=== PATIENT | male | born 1965 | race Caucasian/White ===

== ENCOUNTER 2017-04-18 21:54 | Inpatient (IN) | payer OTHER ==
[~2017-04-18] VITALS: Ht 175.3 cm; Wt 97.2 kg
[~2017-04-18 21:54] MED LIST: GEMF600T PO; LAMO25TA PO; LISI-360 PO; TRIH2 PO; ZOCO40TA PO
[2017-04-18 22:10] VITALS: BP 132/83; PULSE 115; RESP 20; TEMP 98.1; O2SAT 97
[2017-04-18] MEDS ORDERED: ZIPRASIDONE MESYLATE 20 MG VIAL IM ONE (22:15)
--- NOTE | 2017-04-18 22:25 | PD ---
HPI Chief Complaint: Psychiatric Symptoms Time Seen by Provider: 22:08 Travel History International Travel<30 days: No Contact w/Intl Traveler<30days: No Traveled to known affect area: No History of Present Illness HPI 51-year-old white male presents emergency department under [place] act by PD. Patient had gotten upset with a tenet for not paying the rent. An argument escalated. Please were involved. Patient then became acutely agitated and psychotic. He made homicidal statements towards the police officers. The patient was taken down and brought to the ER under a [place] act. Patient here is very agitated and psychotic. The patient admits to alcohol and to tobacco. He denies any other drugs. He denies any medical complaints. He states that he has a history of psychiatric problems, hypertension and wants his medications. PFSH Past Medical History Bipolar Disorder: Yes Anxiety: Yes Diabetes: No Diminished Hearing: No Hepatitis: Yes Hypertension: Yes Psychiatric: Yes Immunizations Current: Yes Tetanus Vaccination: Unknown Influenza Vaccination: No Past Surgical History Appendectomy: Yes (1992) Neurologic Surgery: Yes (LASER SURGERY BACK) Tonsillectomy: Yes (1994) Other Surgery: Yes (NOSE REPAIR) Social History Alcohol Use: Yes (occasionally) Tobacco Use: Yes (cloves pack a day) Substance Use: Yes (Marijuana, cocaine) Allergies-Medications (Allergen,Severity, Reaction): Coded Allergies: No Known Allergies (Unverified Adverse Reaction, Unknown, 04/18/17) Per pt. Reported Meds & Prescriptions Reported Meds & Active Scripts Active Active Prescriptions or Reported Medications Unobtainable Review of Systems ROS Limitations: Psychotic Physical Exam Narrative GENERAL: Well-nourished, well-developed patient. Patient is in four-point restraints. He is thrashing about. SKIN: Warm and dry. HEAD: Normocephalic and atraumatic. EYES: No scleral icterus. No injection or drainage. ENT: No nasal drainage noted. Mucous membranes pink. Airway patent. Patient has some blood on his lips and teeth but due to his combative behavior unable to assess it fully. NECK: Supple, trachea midline. Moves head freely without obvious discomfort. CARDIOVASCULAR: Regular rate and rhythm without murmurs, gallops, or rubs. RESPIRATORY: Breath sounds equal bilaterally. No accessory muscle use. GASTROINTESTINAL: Abdomen soft, non-tender, nondistended. EXTREMITIES: No cyanosis or edema. BACK: Nontender without obvious deformity. No CVA tenderness. NEURO: Patient is alert and oriented. no sensorimotor deficits. Nonfocal. Normal speech. PSYCH: Patient is acutely agitated and psychotic. Data Data Last Documented VS Vital Signs Date Time Temp Pulse Resp B/P (MAP) Pulse Ox O2 Delivery O2 Flow Rate FiO2 04/18/17 22:10 98.1 115 20 132/83 (99) 97 Orders Orders Ziprasidone Inj (Geodon Inj) (04/18/17 22:15) Complete Blood Count With Diff (04/18/17 22:16) Comprehensive Metabolic Panel (04/18/17 22:16) Thyroid Stimulating Hormone (04/18/17 22:16) Psych Screen (04/18/17 22:16) Drug Screen, Random Urine (04/18/17 22:16) Alcohol (Ethanol) (04/18/17 22:16) Restraints Violent (04/18/17 22:25) Labs Laboratory Tests Test 04/18/17 22:15 04/18/17 22:50 White Blood Count 12.6 TH/MM3 Red Blood Count 4.10 MIL/MM3 Hemoglobin 13.2 GM/DL Hematocrit 38.1 % Mean Corpuscular Volume 93.0 FL Mean Corpuscular Hemoglobin 32.3 PG Mean Corpuscular Hemoglobin Concent 34.7 % Red Cell Distribution Width 14.8 % Platelet Count 356 TH/MM3 Mean Platelet Volume 7.9 FL Neutrophils (%) (Auto) 61.3 % Lymphocytes (%) (Auto) 27.6 % Monocytes (%) (Auto) 9.4 % Eosinophils (%) (Auto) 1.4 % Basophils (%) (Auto) 0.3 % Neutrophils # (Auto) 7.7 TH/MM3 Lymphocytes # (Auto) 3.5 TH/MM3 Monocytes # (Auto) 1.2 TH/MM3 Eosinophils # (Auto) 0.2 TH/MM3 Basophils # (Auto) 0.0 TH/MM3 CBC Comment DIFF FINAL Differential Comment Blood Urea Nitrogen 12 MG/DL Creatinine 0.97 MG/DL Random Glucose 84 MG/DL Total Protein 8.8 GM/DL Albumin 4.2 GM/DL Calcium Level 9.3 MG/DL Alkaline Phosphatase 123 U/L Aspartate Amino Transf (AST/SGOT) 51 U/L Alanine Aminotransferase (ALT/SGPT) 26 U/L Total Bilirubin 0.4 MG/DL Sodium Level 140 MEQ/L Potassium Level 4.0 MEQ/L Chloride Level 105 MEQ/L Carbon Dioxide Level 20.7 MEQ/L Anion Gap 14 MEQ/L Estimat Glomerular Filtration Rate 82 ML/MIN Thyroid Stimulating Hormone 3rd Gen 0.940 uIU/ML Ethyl Alcohol Level 135 MG/DL Urine Opiates Screen NEG Urine Barbiturates Screen NEG Urine Amphetamines Screen NEG Urine Benzodiazepines Screen POS Urine Cocaine Screen NEG Urine Cannabinoids Screen POS MDM Medical Decision Making Medical Screen Exam Complete: Yes Emergency Medical Condition: Yes Medical Record Reviewed: Yes Interpretation(s) Laboratory Tests Test 04/18/17 22:15 04/18/17 22:50 White Blood Count 12.6 TH/MM3 Red Blood Count 4.10 MIL/MM3 Hemoglobin 13.2 GM/DL Hematocrit 38.1 % Mean Corpuscular Volume 93.0 FL Mean Corpuscular Hemoglobin 32.3 PG Mean Corpuscular Hemoglobin Concent 34.7 % Red Cell Distribution Width 14.8 % Platelet Count 356 TH/MM3 Mean Platelet Volume 7.9 FL Neutrophils (%) (Auto) 61.3 % Lymphocytes (%) (Auto) 27.6 % Monocytes (%) (Auto) 9.4 % Eosinophils (%) (Auto) 1.4 % Basophils (%) (Auto) 0.3 % Neutrophils # (Auto) 7.7 TH/MM3 Lymphocytes # (Auto) 3.5 TH/MM3 Monocytes # (Auto) 1.2 TH/MM3 Eosinophils # (Auto) 0.2 TH/MM3 Basophils # (Auto) 0.0 TH/MM3 CBC Comment DIFF FINAL Differential Comment Blood Urea Nitrogen 12 MG/DL Creatinine 0.97 MG/DL Random Glucose 84 MG/DL Total Protein 8.8 GM/DL Albumin 4.2 GM/DL Calcium Level 9.3 MG/DL Alkaline Phosphatase 123 U/L Aspartate Amino Transf (AST/SGOT) 51 U/L Alanine Aminotransferase (ALT/SGPT) 26 U/L Total Bilirubin 0.4 MG/DL Sodium Level 140 MEQ/L Potassium Level 4.0 MEQ/L Chloride Level 105 MEQ/L Carbon Dioxide Level 20.7 MEQ/L Anion Gap 14 MEQ/L Estimat Glomerular Filtration Rate 82 ML/MIN Thyroid Stimulating Hormone 3rd Gen 0.940 uIU/ML Ethyl Alcohol Level 135 MG/DL Urine Opiates Screen NEG Urine Barbiturates Screen NEG Urine Amphetamines Screen NEG Urine Benzodiazepines Screen POS Urine Cocaine Screen NEG Urine Cannabinoids Screen POS Differential Diagnosis MDM: High Differential diagnoses: Schizophrenia, schizoaffective disorder, bipolar, anxiety, depression, adjustment reaction, mood disorder NOS, ODD, depressive disorder NOS, dementia, dementia with agitation, psychosis NOS, substance induced mood disorder, DMDD, Asperger syndrome, infection,electrolyte abnormality, malingering. Narrative Course Mental health screening discussed with the patient. Psychiatric screen ordered. The patient is acutely agitated and combative. There is concern for safety of the medical staff. The patient was taking from handcuffs and placed in four- point restraints. He was medicated with Geodon 20 mg IM. The patient has been medically cleared. Diagnosis Primary Impression: Medical clearance for psychiatric admission Scripts Unable to Obtain Active Prescriptions or Reported Meds Condition: Sarmad Cash Apr 18, 2017 22:25
[2017-04-18 22:50] LABS: AUTOMATED NEUTROPHIL # 7.7 TH/MM3 (1.8-7.7); BASOPHIL % 0.3 % (0.0-2.0); EOSINOPHIL # 0.2 TH/MM3 (0-0.4); EOSINOPHIL % 1.4 % (0.0-4.0); HEMATOCRIT 38.1 % (39.0-51.0); HEMOGLOBIN 13.2 GM/DL (13.0-17.0); LYMPH % 27.6 % (9.0-44.0); LYMPHOCYTE # 3.5 TH/MM3 (1.0-4.8); MEAN CORPUSCULAR HEMOGLOBIN 32.3 PG (27.0-34.0); MEAN CORPUSCULAR HGB CONC 34.7 % (32.0-36.0); MEAN PLATELET VOLUME 7.9 FL (7.0-11.0); MONO % 9.4 % (0.0-8.0); MONOCYTE # 1.2 TH/MM3 (0-0.9); NEUT % 61.3 % (16.0-70.0); PLATELET COUNT 356 TH/MM3 (150-450); RED CELL DISTRIBUTION WIDTH 14.8 % (11.6-17.2); WHITE BLOOD COUNT 12.6 TH/MM3 (4.0-11.0)
[2017-04-18 23:04] LABS: ALT (GPT) 26 U/L (12-78)
[2017-04-18 23:15] LABS: ALKALINE PHOSPHATASE 123 U/L (45-117); TOTAL BILIRUBIN ADULT 0.4 MG/DL (0.2-1.0); TOTAL PROTEIN 8.8 GM/DL (6.4-8.2)
[2017-04-18 23:17] LABS: ALBUMIN 4.2 GM/DL (3.4-5.0); AST (GOT) 51 U/L (15-37); BICARBONATE 20.7 MEQ/L (21.0-32.0); BLOOD UREA NITROGEN 12 MG/DL (7-18); CALCIUM 9.3 MG/DL (8.5-10.1); CHLORIDE 105 MEQ/L (98-107); CREATININE 0.97 MG/DL (0.60-1.30); GLOMERULAR FILTRATION RATE 82 ML/MIN (>89); GLUCOSE,RANDOM 84 MG/DL (74-106); SODIUM (NA) 140 MEQ/L (136-145)
[2017-04-19] MEDS ORDERED: diphenhydrAMINE HCL 50 MG/ML VIAL IM ONE ×2 (00:45→14:00)
[2017-04-19] MEDS ORDERED: LORazepam 2 MG/ML VIAL IM ONE (00:45)
[2017-04-19 02:13] VITALS: BP 136/78; PULSE 97; RESP 20; O2SAT 97
[2017-04-19 06:32] VITALS: BP 124/77; PULSE 87; RESP 20; O2SAT 98
[2017-04-19 10:10] VITALS: BP 145/71; PULSE 89; RESP 22
[2017-04-19] MEDS ORDERED: SERO200T PO (12:41)
[2017-04-19] MEDS ORDERED: TRAZ50TA12 PO (12:42)
[2017-04-19] MEDS ORDERED: ZIPR40 PO (12:42)
[2017-04-19] MEDS ORDERED: TRIH2 PO (12:42)
[2017-04-19] MEDS ORDERED: PROP40TA3 PO (12:44)
[2017-04-19] MEDS ORDERED: ZIPRASIDONE MESYLATE 20 MG VIAL IM ONE (14:00)
[2017-04-19] MEDS ORDERED: LORazepam 2 MG TAB PO PRN (16:15)
[2017-04-19] MEDS ORDERED: LORazepam 2 MG/ML VIAL IM PRN (16:15)
[2017-04-19] MEDS ORDERED: FLUMAZENIL 0.5 MG/5 ML VIAL IV PUSH PRN (16:15)
[2017-04-19] MEDS ORDERED: MAGNESIUM HYDROXIDE SUSP 30 ML CUP PO PRN (16:15)
[2017-04-19] MEDS ORDERED: ALUMINUM/MAGNESIUM/SIMETH 30 ML CUP PO PRN (16:15)
[2017-04-19] MEDS ORDERED: LORazepam 1 MG TAB PO PRN (16:15)
[2017-04-19] MEDS ORDERED: LORazepam 0.5 MG TAB PO PRN (16:15)
[2017-04-19] MEDS ORDERED: LORazepam 2 MG/ML VIAL IV PUSH PRN ×4 (16:15)
--- NOTE | 2017-04-19 16:33 | HHI.HP ---
Provisional Diagnosis Admission Date Commerce I. Bipolar disorder, polysubstance dependance, including Cocaine, alcohol and cannabis Commerce II. deferred Commerce III. No significant medical history Certification of Person's Competence To Provide Express and Informed Consent I have personally examined Mark Massey , a person being served at [facility] on, Apr 19, 2017 16:09. Express and informed consent means consent voluntarily given in writing, by a competent person, after sufficient explanation and disclosure of the subject matter involved to enable the person to make a knowing and willful decision without any element of force, fraud, deceit, duress, or other form of constraint or coercion. This person is 18 years of age or older, is not now known to be incompetent to consent to treatment with a guardian advocate, and does not have a health care surrogate or proxy currently making medical treatment decisions. I have found this person to be one of the following: [] Competent to provide express and informed consent, as defined above, for voluntary admission to this facility and is competent to provide express and informed consent for treatment. He/she has the consistent capacity to make well reasoned, willful, and knowing decisions concerning his or her medical or mental health treatment. The person fully and consistently understands the purpose of the admission for examination/placement and is fully capable of personally exercising all rights assured [place] Incompetent to provide express and informed consent to voluntary admission, and this is incompetent to provide express and informed consent to treatment. The person must be transferred to involuntary status and a petition for a guardian advocate filed with the Circuit Court. [x] Refusing to provide express and informed consent to voluntary admission but is competent to provide express and informed consent for treatment. The person must be discharged or transferred to involuntary status. Form shall be completed within 24 hours of a person's arrival at the receiving facility and filed in the clinical record of each person: 1. Admitted on a voluntary basis 2. Permitted to provide express and informed consent to his/her own treatment 3. Allowed to transfer from involuntary to voluntary status 4. Prior to permitting a person to consent to his or her own treatment after having been previously found incompetent to consent to treatment. History of Present Illness Capacity: Has Capacity HPI The patient is a 51-year-old man, domiciled wit his mother, unemployed, single, [facility] of bipolar disorder, alcohol,. cannabis and cocaine use disorder, mult hospitalizations, no SAs, last hospitalization was here in [place] in 2016, outpatient care in [facility], he is on Geodon 80 bid, Seroquel 150 mg HS, propranolol 10 tid for akathisia, trazodone 150 hs, no significant medical history, who presents emergency department under [place] act by PD. Patient had gotten upset with a tenent for not paying the rent. An argument escalated. Please were involved. Patient then became acutely agitated and psychotic. He made homicidal statements towards the police officers. The patient was taken down and brought to the ER under a [place] act. Patient here is very agitated and psychotic. The patient admits to alcohol and to tobacco. He denies any other drugs. He denies any medical complaints. He states that he has a history of psychiatric problems, hypertension and wants his medications. On arrival to ER patient is so hostile and agitated that had to be medicated with Geodon 10 mg im and Benadryl 50 im in order to calm him down. When I see him is very sedated and just partially cooperative. he says he is here "because my IQ is too high and those mother f.....s wanted to kill me". This morning he allegedly destroyed his mother doctor office, when I confronted him about this issue he says "I wanted my medical records and my mothers medical records and they did not wanted to give it to me". His toxicology is positive for cocaine and cannabis and his BAL is 135. I tried to get collateral information form his mother [phone], but she did not oyster picker the phone. Review of Systems Constitutional: DENIES: Diaphoretic episodes, Fatigue, Fever, Weight gain, Weight loss, Chills, Dizziness, Change in appetite, Night Sweats Endocrine: DENIES: Heat/cold intolerance, Polydipsia, Polyuria, Polyphagia Eyes: DENIES: Blurred vision, Diplopia, Eye inflammation, Eye pain, Vision loss , Photosensitivity, Double Vision Ears, nose, mouth, throat: DENIES: Tinnitus, Hearing loss, Vertigo, Nasal discharge, Oral lesions, Throat pain, Hoarseness, Ear Pain, Running Nose, Epistaxis, Sinus Pain, Toothache, Odynophagia Respiratory: DENIES: Apneas, Cough, Snoring, Wheezing, Hemoptysis, Sputum production, Shortness of breath Cardiovascular: DENIES: Chest pain, Palpitations, Syncope, Dyspnea on Exertion , PND, Lower Extremity Edema, Orthopnea, Claudication Gastrointestinal: DENIES: Abdominal pain, Black stools, Bloody stools, Constipation, Diarrhea, Nausea, Vomiting, Difficulty Swallowing, Anorexia Genitourinary: DENIES: Sexual dysfunction, Urinary frequency, Urinary incontinence, Urgency, Hematuria, Dysuria, Nocturia, Penile Discharge, Testicular Pain, Testicular Swelling Musculoskeletal: DENIES: Joint pain, Muscle aches, Stiffness, Joint Swelling, Back pain, Neck pain Integumentary: DENIES: Abnormal pigmentation, Nail changes, Pruritus, Rash Hematologic/lymphatic: DENIES: Bruising, Lymphadenopathy Immunologic/allergic: DENIES: Eczema, Urticaria Neurologic: DENIES: Abnormal gait, Headache, Localized weakness, Paresthesias, Seizures, Speech Problems, Tremor, Poor Balance Psychiatric: COMPLAINS OF: Anxiety, Mood changes, Delusions, DENIES: Confusion , Depression, Hallucinations, Agitation, Suicidal Ideation, Homicidal Ideation Past Psych History Violence risk - others (6 mos) increased Violence risk - self (6 mos) increased Substance Abuse History Drugs/Alcohol past 12 months cocaine, cannabis and alcohol Past Family Social History Coded Allergies: No Known Allergies (Unverified Adverse Reaction, Unknown, 04/19/17) Per pt. Reported Medications Propranolol (Propranolol) 40 Mg Tab, 40 MG PO Q12HR, #60 TAB 0 Refills 18 Ziprasidone (Geodon) 40 Mg Cap, 40 MG PO BID, #60 CAP 0 Refills 18 Trihexyphenidyl (Trihexyphenidyl) 2 Mg Tab, 2 MG PO BID for Parkinson Disease Mgmt, #60 TAB 0 Refills 18 Trazodone (Trazodone) 50 Mg Tab, 50 MG PO HS for Control Depression, #30 TAB 0 Refills 18 Quetiapine (Seroquel) 200 Mg Tab, 200 MG PO HS, #30 TAB 0 Refills 18 Family Psych History Mother is bipolar Social History he was born in [place], he lives with his mother in [place], unemployed, on SSI, single, Collage education Patient's Strengths (min. 2) outpatient care in [facility] Physical Exam agitated Vital Signs Vital Signs Date Time Temp Pulse Resp B/P (MAP) Pulse Ox O2 Delivery O2 Flow Rate FiO2 04/19/17 10:10 89 22 145/71 (95) Room Air 04/19/17 06:32 98 04/18/17 22:10 98.1 Lab Results Test 04/18/17 22:15 04/18/17 22:50 White Blood Count 12.6 TH/MM3 Red Blood Count 4.10 MIL/MM3 Hemoglobin 13.2 GM/DL Hematocrit 38.1 % Mean Corpuscular Volume 93.0 FL Mean Corpuscular Hemoglobin 32.3 PG Mean Corpuscular Hemoglobin Concent 34.7 % Red Cell Distribution Width 14.8 % Platelet Count 356 TH/MM3 Mean Platelet Volume 7.9 FL Neutrophils (%) (Auto) 61.3 % Lymphocytes (%) (Auto) 27.6 % Monocytes (%) (Auto) 9.4 % Eosinophils (%) (Auto) 1.4 % Basophils (%) (Auto) 0.3 % Neutrophils # (Auto) 7.7 TH/MM3 Lymphocytes # (Auto) 3.5 TH/MM3 Monocytes # (Auto) 1.2 TH/MM3 Eosinophils # (Auto) 0.2 TH/MM3 Basophils # (Auto) 0.0 TH/MM3 CBC Comment DIFF FINAL Differential Comment Blood Urea Nitrogen 12 MG/DL Creatinine 0.97 MG/DL Random Glucose 84 MG/DL Total Protein 8.8 GM/DL Albumin 4.2 GM/DL Calcium Level 9.3 MG/DL Alkaline Phosphatase 123 U/L Aspartate Amino Transf (AST/SGOT) 51 U/L Alanine Aminotransferase (ALT/SGPT) 26 U/L Total Bilirubin 0.4 MG/DL Sodium Level 140 MEQ/L Potassium Level 4.0 MEQ/L Chloride Level 105 MEQ/L Carbon Dioxide Level 20.7 MEQ/L Anion Gap 14 MEQ/L Estimat Glomerular Filtration Rate 82 ML/MIN Thyroid Stimulating Hormone 3rd Gen 0.940 uIU/ML Ethyl Alcohol Level 135 MG/DL Urine Opiates Screen NEG Urine Barbiturates Screen NEG Urine Amphetamines Screen NEG Urine Benzodiazepines Screen POS Urine Cocaine Screen NEG Urine Cannabinoids Screen POS Mental Status Examination Appearance: Appropriate Consciousness: Alert Orientation: x4 Motor Activity: Normal gait Speech: Rapid Language: Adequate Fund of Knowledge: Adequate Attention and Concentration: Adequate Memory: Unremarkable Mood: Appropriate Affect: Appropriate Thought Process & Associations: Goal directed, Tangential Thought Content: Bizarre thinking, Racing thoughts, Delusional Hallucination Type: None Delusion Type: Paranoid Suicidal Ideation: No Suicidal Plan: No Suicidal Intention: No Homicidal Ideation: No Homicidal Plan: No Homicidal Intention: No Insight: Poor Judgment: Poor Assessment & Plan Problem List: (1) Schizoaffective disorder ICD Codes: F25.9 - Schizoaffective disorder, unspecified Status: Acute Assessment & Plan: Patient is acutely manic and needs psychiatric admission for stabilization. He also complains of restlessness and anxiety that could me related to akathisia Will decreased Geodon to 20 mg bid with intentions to DC Increased Seroquel to 100 mg bid and will restart trazodone 100mg Also start CIWA protocol Consult for psychiatric second opinion placed intervention for psychosocial assessment and collateral Transfer to 2700 (2) Akathisia ICD Codes: G25.71 - Drug induced akathisia Assessment & Plan: Patient has history of akathisia, I will decrease Geodon to 20 bid with the intention to DC and will raised Seroquel to leave him with just one antipsychotics and avoid EPS. Will continue Propranolol 10 bid . Assessment & Plan Estimated LOS: Devon Bolanos MD Apr 19, 2017 16:33
[2017-04-19] MEDS: NICOTINE 21 MG/24 HR PATCH T-DERMAL SCH (17:00)
[2017-04-19 18:18] VITALS: BP 135/83; PULSE 94; RESP 17; TEMP 98.1; O2SAT 97
[2017-04-19] MEDS: TRIHEXYPHENIDYL HCL 2 MG TAB PO SCH (20:33)
[2017-04-19] MEDS: QUEtiapine FUMARATE 200 MG TAB PO SCH (20:33)
[2017-04-19] MEDS: traZODone HCL 50 MG TAB PO SCH (20:33)
[2017-04-19] MEDS: PROPRANOLOL HCL 40 MG TAB PO SCH (20:33)
[2017-04-19] MEDS: ZIPRASIDONE HCL 20 MG CAP PO SCH (20:33)
[2017-04-19] MEDS: ACETAMINOPHEN 325 MG TAB PO PRN (20:34)
[2017-04-19] MEDS ORDERED: ZIPRASIDONE HCL 40 MG CAP PO SCH (21:00)
[2017-04-20 05:53] VITALS: BP 130/76; PULSE 71; RESP 16; TEMP 96.7; O2SAT 96
[2017-04-20] MEDS: NICOTINE 21 MG/24 HR PATCH T-DERMAL SCH (09:00)
[2017-04-20] MEDS: ACETAMINOPHEN 325 MG TAB PO PRN ×2 (09:30→13:30)
[2017-04-20 09:56] LABS: BICARBONATE 27.1 MEQ/L (21.0-32.0); BLOOD UREA NITROGEN 13 MG/DL (7-18); CALCIUM 9.6 MG/DL (8.5-10.1); CHLORIDE 106 MEQ/L (98-107); CHOLESTEROL 104 MG/DL (120-200); CREATININE 0.83 MG/DL (0.60-1.30); GLOMERULAR FILTRATION RATE 98 ML/MIN (>89); GLUCOSE,RANDOM 75 MG/DL (74-106); SODIUM (NA) 141 MEQ/L (136-145); TRIGLYCERIDES 100 MG/DL (42-150)
[2017-04-20 09:59] LABS: CHOLESTEROL/ HDL RATIO 2.12 RATIO; LDL CHOLESTEROL 35 MG/DL (0-99)
[2017-04-20] MEDS ORDERED: INFLUENZA VIRUS VACCINE (QUADRIVALENT) 0.5 ML SYR IM ONE (10:00)
[2017-04-20] MEDS ORDERED: PNEUMOCOCCAL POLYVALENT INJ 25 MCG/0.5 ML SYR IM ONE (10:00)
[2017-04-20] MEDS: PROPRANOLOL HCL 40 MG TAB PO SCH ×2 (11:32→20:39)
[2017-04-20] MEDS: ZIPRASIDONE HCL 20 MG CAP PO SCH ×2 (11:32→20:38)
[2017-04-20] MEDS: TRIHEXYPHENIDYL HCL 2 MG TAB PO SCH ×2 (11:32→20:39)
[2017-04-20 11:53] LABS: HEMOGLOBIN A1C 5.6 % (4.3-6.0)
[2017-04-20] MEDS ORDERED: LORazepam 2 MG/ML VIAL IV PUSH STA (12:37)
[2017-04-20] MEDS ORDERED: HALOPERIDOL LACTATE 5 MG/ML AMP IM ONE (12:45)
--- NOTE | 2017-04-20 15:11 | HHI.PYPN ---
Subjective Remarks This is a request for second opinion. Admission note was reviewed and I agree with the content. Today patient is oppositional and rude using curse words towards various staff members. He is giving bizarre threats and says that he will urinate on me. "oscar showers motherfucker." He received an ETO earlier today. Thought process loose Mental Status Examination Appearance: Appropriate Consciousness: Vigilant Orientation: x4 Motor Activity: Normal gait Speech: Unremarkable Language: Adequate Fund of Knowledge: Adequate Attention and Concentration: Adequate Memory: Unremarkable Mood: Angry Affect: Irritable, Labile Thought Process & Associations: Loose associations Thought Content: Bizarre thinking, Delusional Hallucination Type: None Delusion Type: Paranoid Suicidal Ideation: No Suicidal Plan: No Suicidal Intention: No Homicidal Ideation: No Homicidal Plan: No Homicidal Intention: No Insight: Poor Judgment: Poor Results Labs Test 04/20/17 09:00 Blood Urea Nitrogen 13 MG/DL Creatinine 0.83 MG/DL Random Glucose 75 MG/DL Calcium Level 9.6 MG/DL Sodium Level 141 MEQ/L Potassium Level 3.9 MEQ/L Chloride Level 106 MEQ/L Carbon Dioxide Level 27.1 MEQ/L Anion Gap 8 MEQ/L Estimat Glomerular Filtration Rate 98 ML/MIN Hemoglobin A1c 5.6 % Triglycerides Level 100 MG/DL Cholesterol Level 104 MG/DL LDL Cholesterol 35 MG/DL HDL Cholesterol 49.0 MG/DL Cholesterol/HDL Ratio 2.12 RATIO Vitals/IOs Vital Signs Date Time Temp Pulse Resp B/P (MAP) Pulse Ox O2 Delivery O2 Flow Rate FiO2 04/20/17 05:53 96.7 71 16 130/76 (94) 96 04/19/17 10:10 Room Air Assessment & Plan Problem List: (1) Schizoaffective disorder ICD Codes: F25.9 - Schizoaffective disorder, unspecified Status: Acute (2) Akathisia ICD Codes: G25.71 - Drug induced akathisia Assessment & Plan I agree with first opinion to continue petition, criteria include acute psychosis Justification for Cont. Inpt. Patient will decompensate in a less restrictive setting Junior Hare DO Apr 20, 2017 15:11
[2017-04-20 18:17] VITALS: BP 139/83; PULSE 70; RESP 17; TEMP 96.8; O2SAT 97
[2017-04-20] MEDS: traZODone HCL 50 MG TAB PO SCH (20:39)
[2017-04-20] MEDS: QUEtiapine FUMARATE 200 MG TAB PO SCH (20:39)
[2017-04-20] MEDS: REMOVE OLD NICODERM (NICOTINE) PATCH T-DERMAL SCH (20:39)
[2017-04-20] MEDS: LORazepam 1 MG TAB PO PRN (20:44)
[2017-04-21 06:13] VITALS: BP 126/77; PULSE 77; RESP 16; TEMP 97.8; O2SAT 98
[2017-04-21] MEDS: NICOTINE 21 MG/24 HR PATCH T-DERMAL SCH (09:00)
[2017-04-21] MEDS: PROPRANOLOL HCL 40 MG TAB PO SCH ×2 (09:30→20:33)
[2017-04-21] MEDS: ZIPRASIDONE HCL 20 MG CAP PO SCH ×2 (09:30→20:32)
[2017-04-21] MEDS: TRIHEXYPHENIDYL HCL 2 MG TAB PO SCH ×2 (09:30→20:32)
[2017-04-21] MEDS: ACETAMINOPHEN 325 MG TAB PO PRN ×2 (09:31→13:30)
--- NOTE | 2017-04-21 12:39 | HHI.PYPN ---
Subjective Remarks Patient continues to be irritable, rude well cursing throughout the interview. He is fixated on Dr. Dominique for allegedly lying to him about length of stay. Patient has sneaked in a cigarette and was seen smoking in his room. Apparently he was also given trazodone by his visitor which she was distributing among some of the patient's. Patient sees nothing wrong with his unexcused behavior. Mental Status Examination Appearance: Appropriate Consciousness: Vigilant Orientation: x4 Motor Activity: Normal gait Speech: Unremarkable Language: Adequate Fund of Knowledge: Adequate Attention and Concentration: Adequate Memory: Unremarkable Mood: Angry Affect: Irritable, Labile Thought Process & Associations: Loose associations Thought Content: Bizarre thinking, Delusional Hallucination Type: None Delusion Type: Paranoid Suicidal Ideation: No Suicidal Plan: No Suicidal Intention: No Homicidal Ideation: No Homicidal Plan: No Homicidal Intention: No Insight: Poor Judgment: Poor Results Vitals/IOs Vital Signs Date Time Temp Pulse Resp B/P (MAP) Pulse Ox O2 Delivery O2 Flow Rate FiO2 04/21/17 06:13 97.8 77 16 126/77 (93) 98 04/19/17 10:10 Room Air Assessment & Plan Problem List: (1) Schizoaffective disorder ICD Codes: F25.9 - Schizoaffective disorder, unspecified Status: Acute (2) Akathisia ICD Codes: G25.71 - Drug induced akathisia Assessment & Plan Continue current treatment plan, no visitors Justification for Cont. Inpt. Patient would decompensate in a less restrictive setting Junior Hare DO Apr 21, 2017 12:39
[2017-04-21 18:06] VITALS: BP 151/89; PULSE 81; RESP 16; TEMP 97.3; O2SAT 96
[2017-04-21] MEDS: REMOVE OLD NICODERM (NICOTINE) PATCH T-DERMAL SCH (20:31)
[2017-04-21] MEDS: QUEtiapine FUMARATE 200 MG TAB PO SCH (20:32)
[2017-04-21] MEDS: traZODone HCL 50 MG TAB PO SCH (20:32)
[2017-04-22] MEDS: LORazepam 2 MG/ML VIAL IM PRN (01:02)
[2017-04-22 06:23] VITALS: BP 132/80; PULSE 75; RESP 18; TEMP 97.5; O2SAT 95
[2017-04-22] MEDS: ACETAMINOPHEN 325 MG TAB PO PRN (08:04)
[2017-04-22] MEDS: PROPRANOLOL HCL 40 MG TAB PO SCH ×2 (08:57→20:04)
[2017-04-22] MEDS: NICOTINE 21 MG/24 HR PATCH T-DERMAL SCH (08:58)
[2017-04-22] MEDS: TRIHEXYPHENIDYL HCL 2 MG TAB PO SCH ×2 (09:00→20:04)
[2017-04-22] MEDS: ZIPRASIDONE HCL 20 MG CAP PO SCH ×2 (09:00→20:04)
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
[2017-04-22 16:31] VITALS: BP 161/94; PULSE 86; RESP 18; TEMP 97.5; O2SAT 100
[2017-04-22] MEDS: traZODone HCL 50 MG TAB PO SCH (20:04)
[2017-04-22] MEDS: QUEtiapine FUMARATE 200 MG TAB PO SCH (20:04)
[2017-04-22] MEDS: REMOVE OLD NICODERM (NICOTINE) PATCH T-DERMAL SCH (20:05)
[2017-04-23] MEDS: LORazepam 2 MG/ML VIAL IM PRN ×2 (01:14→23:06)
[2017-04-23 05:47] VITALS: BP 132/88; PULSE 79; RESP 18; TEMP 97; O2SAT 98
[2017-04-23 08:54] LABS: AUTOMATED NEUTROPHIL # 5.7 TH/MM3 (1.8-7.7); BASOPHIL % 0.4 % (0.0-2.0); EOSINOPHIL # 0.2 TH/MM3 (0-0.4); EOSINOPHIL % 2.3 % (0.0-4.0); HEMATOCRIT 39.8 % (39.0-51.0); HEMOGLOBIN 13.5 GM/DL (13.0-17.0); LYMPH % 19.4 % (9.0-44.0); LYMPHOCYTE # 1.5 TH/MM3 (1.0-4.8); MEAN CELL VOLUME 94.1 FL (80.0-100.0); MEAN PLATELET VOLUME 7.9 FL (7.0-11.0); MONO % 6.1 % (0.0-8.0); MONOCYTE # 0.5 TH/MM3 (0-0.9); NEUT % 71.8 % (16.0-70.0); PLATELET COUNT 303 TH/MM3 (150-450); RED BLOOD COUNT 4.22 MIL/MM3 (4.50-5.90); RED CELL DISTRIBUTION WIDTH 14.6 % (11.6-17.2)
[2017-04-23] MEDS: ZIPRASIDONE HCL 20 MG CAP PO SCH (09:00)
[2017-04-23] MEDS: TRIHEXYPHENIDYL HCL 2 MG TAB PO SCH ×2 (09:00→20:23)
[2017-04-23] MEDS: NICOTINE 21 MG/24 HR PATCH T-DERMAL SCH (09:00)
[2017-04-23] MEDS: PROPRANOLOL HCL 40 MG TAB PO SCH (09:00)
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
[2017-04-23] MEDS ORDERED: fluPHENAZine HCL 25 MG/10 ML VIAL IM PRN (11:15)
[2017-04-23] MEDS: DIVALPROEX SODIUM E.R. 500 MG TAB PO SCH (11:15)
[2017-04-23] MEDS ORDERED: diphenhydrAMINE HCL 50 MG/ML VIAL IM PRN (11:15)
[2017-04-23] MEDS: ATORVASTATIN 20 MG TAB PO SCH (12:15)
[2017-04-23] MEDS: LISINOPRIL 20 MG TAB PO SCH (12:15)
[2017-04-23 12:48] LABS: ALBUMIN 3.7 GM/DL (3.4-5.0); DIRECT BILIRUBIN ADULT 0.1 MG/DL (0.0-0.2)
[2017-04-23 12:50] LABS: INDIRECT BILIRUBIN 0.2 MG/DL (0.0-0.8); TOTAL BILIRUBIN ADULT 0.3 MG/DL (0.2-1.0); TOTAL PROTEIN 7.7 GM/DL (6.4-8.2)
[2017-04-23 18:16] VITALS: BP 140/86; PULSE 84; RESP 18; TEMP 97.9; O2SAT 98
[2017-04-24 05:43] VITALS: BP 151/95; PULSE 83; RESP 18; TEMP 96.7; O2SAT 98
--- NOTE | 2017-04-24 06:55 | EKG ---
Date Performed: 04/22/2017 Time Performed: 15:21:48 PTAGE: 51 years EKG: Sinus rhythm CANNOT RULE OUT ATRIAL PACING, OTHERWISE NO CHANGE FROM THE PRIOR TRACING. NORMAL ECG PREVIOUS TRACING : 04/25/2015 15.13 DOCTOR: Ricky Velazquez Interpretating Date/Time 04/24/2017 06:53:59
[2017-04-24] MEDS: TRIHEXYPHENIDYL HCL 2 MG TAB PO SCH ×2 (08:19→21:06)
[2017-04-24] MEDS: PROPRANOLOL HCL 40 MG TAB PO SCH (08:19)
[2017-04-24] MEDS: DIVALPROEX SODIUM E.R. 500 MG TAB PO SCH (08:20)
[2017-04-24] MEDS: ACETAMINOPHEN 325 MG TAB PO PRN ×2 (08:32→15:11)
[2017-04-24] MEDS: LISINOPRIL 20 MG TAB PO SCH (09:00)
[2017-04-24] MEDS: ATORVASTATIN 20 MG TAB PO SCH (09:00)
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
[2017-04-24] MEDS: LORazepam 1 MG TAB PO PRN ×2 (11:04→21:06)
[2017-04-24] MEDS ORDERED: fluPHENAZine HCL 25 MG/10 ML VIAL IM PRN ×3 (12:00→15:00)
[2017-04-24 17:11] VITALS: BP 134/90; PULSE 91; RESP 18; TEMP 98.6; O2SAT 98
[2017-04-24] MEDS ORDERED: REMOVE OLD NICODERM (NICOTINE) PATCH T-DERMAL PRN (21:00)
[2017-04-25] MEDS: ACETAMINOPHEN 325 MG TAB PO PRN ×3 (05:11→21:44)
[2017-04-25 06:10] VITALS: BP 125/83; PULSE 83; RESP 16; TEMP 97.6; O2SAT 98
[2017-04-25] MEDS: PROPRANOLOL HCL 40 MG TAB PO SCH (09:38)
[2017-04-25] MEDS: LISINOPRIL 20 MG TAB PO SCH (09:38)
[2017-04-25] MEDS: ATORVASTATIN 20 MG TAB PO SCH (09:38)
[2017-04-25] MEDS: TRIHEXYPHENIDYL HCL 2 MG TAB PO SCH ×2 (09:39→21:13)
[2017-04-25] MEDS: DIVALPROEX SODIUM E.R. 500 MG TAB PO SCH (09:39)
[2017-04-25] MEDS: NICOTINE 21 MG/24 HR PATCH T-DERMAL PRN (10:38)
--- NOTE | 2017-04-25 11:32 | HHI.PYPN ---
Subjective Remarks Patient seen and case discussed with nursing staff. Chart reviewed. Per nursing staff, patient remains fairly labile. Case discussed with counselor. For me today, patient remains fairly intrusive, loud, irritable. His speech is a little less pressured. He is less overtly hostile and threatening, e.g. of lawsuits, and is more passive aggressive. No evident side effects from medications. No physical complaints. I did endeavor repeatedly to reach patient's mother, Ms. Martinez, to discuss patient's progress, but this number keeps ringing busy. Review of Systems ROS Limitations: Psychotic, Poor Historian Except as stated in HPI: all other systems reviewed are Neg Mental Status Examination Appearance: Appropriate Consciousness: Alert Orientation: Person, Place Motor Activity: Normal gait, Other (no motoric abnormalities noted) Speech: Other Language: Adequate Fund of Knowledge: Adequate Attention and Concentration: Easily Distracted Memory: Unremarkable Mood: Oppositional, Irritable Affect: Irritable, Labile Thought Process & Associations: Loose associations (perhaps a little more focused today) Thought Content: Bizarre thinking, Delusional Hallucination Type: None Delusion Type: Paranoid, Other (delusional thinking perhaps decreasing somewhat today) Suicidal Ideation: No Suicidal Plan: No Suicidal Intention: No Homicidal Ideation: No Homicidal Plan: No Homicidal Intention: No Insight: Poor Judgment: Poor Results Labs Labs reviewed. No new labs. Vitals/IOs Vital Signs Date Time Temp Pulse Resp B/P (MAP) Pulse Ox O2 Delivery O2 Flow Rate FiO2 04/25/17 06:10 97.6 83 16 125/83 (97) 98 Assessment & Plan Problem List: (1) Schizoaffective disorder ICD Codes: F25.9 - Schizoaffective disorder, unspecified Status: Acute (2) Polysubstance abuse ICD Codes: F19.10 - Other psychoactive substance abuse, uncomplicated (3) Antisocial personality traits Assessment & Plan Some modest improvement with current psychotropic regimen. Titrate Prolixin to 5mg four times daily to target psychosis. Continue Depakote as ordered and plan to obtain a Depakote and ammonia level in the morning. Plan to adjust the dose based on the level. Continue to monitor on the high acuity unit. Continue other medications and care as ordered. Patient's case was presented to the [place], and the patient was retained on the unit by the wire mesh filter fabricator with his mother and ZANA appointed as GAs. Content Development Manager also included a proviso to have law enforcement secure any weapons that the patient may own. Justification for Cont. Inpt. Medication changes. Impairment in reality construction. High risk for decompensation in less restrictive environment. Discharge Planning Pending psychiatric stabilization Request HC Surrog/Guard Advoc?: Yes Problem Qualifiers (1) Schizoaffective disorder: Qualified Codes: F25.0 - Schizoaffective disorder, bipolar type Max Gonzalez MD Apr 25, 2017 11:32
[2017-04-25] MEDS ORDERED: fluPHENAZine HCL 25 MG/10 ML VIAL IM PRN (13:30)
[2017-04-25 18:15] VITALS: BP 132/72; PULSE 85; RESP 18; TEMP 99.3; O2SAT 98
[2017-04-25] MEDS: LORazepam 1 MG TAB PO PRN (21:12)
[2017-04-26] MEDS: ACETAMINOPHEN 325 MG TAB PO PRN ×2 (05:31→17:12)
[2017-04-26 06:06] VITALS: BP 122/77; PULSE 91; RESP 18; TEMP 96.7; O2SAT 100
[2017-04-26] MEDS: DIVALPROEX SODIUM E.R. 500 MG TAB PO SCH (09:15)
[2017-04-26] MEDS: PROPRANOLOL HCL 40 MG TAB PO SCH (09:15)
[2017-04-26] MEDS: LISINOPRIL 20 MG TAB PO SCH (09:16)
[2017-04-26] MEDS: ATORVASTATIN 20 MG TAB PO SCH (09:16)
[2017-04-26] MEDS: TRIHEXYPHENIDYL HCL 2 MG TAB PO SCH ×2 (09:16→21:22)
[2017-04-26] MEDS: NICOTINE 21 MG/24 HR PATCH T-DERMAL PRN (09:22)
[2017-04-26 10:22] LABS: ALBUMIN 3.8 GM/DL (3.4-5.0)
[2017-04-26 10:25] LABS: DIRECT BILIRUBIN ADULT 0.1 MG/DL (0.0-0.2); INDIRECT BILIRUBIN 0.2 MG/DL (0.0-0.8); TOTAL BILIRUBIN ADULT 0.3 MG/DL (0.2-1.0); TOTAL PROTEIN 8.5 GM/DL (6.4-8.2)
[2017-04-26] MEDS: NEOMYCIN/POLYMYXIN/BACITRACIN OINT 15 GM TUBE TOPICAL SCH (11:30)
[2017-04-26] MEDS: IBUPROFEN 400 MG TAB PO SCH ×3 (13:03→23:58)
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
[2017-04-26 18:07] VITALS: BP 134/81; PULSE 94; RESP 18; TEMP 98; O2SAT 97
[2017-04-26] MEDS: LORazepam 1 MG TAB PO PRN (21:22)
[2017-04-27] MEDS: IBUPROFEN 400 MG TAB PO SCH ×4 (05:46→23:03)
[2017-04-27 06:25] VITALS: BP 131/84; PULSE 104; RESP 19; TEMP 97.1; O2SAT 95
[2017-04-27] MEDS: DIVALPROEX SODIUM E.R. 500 MG TAB PO SCH (08:44)
[2017-04-27] MEDS: PROPRANOLOL HCL 40 MG TAB PO SCH (08:44)
[2017-04-27] MEDS: TRIHEXYPHENIDYL HCL 2 MG TAB PO SCH ×2 (08:44→20:16)
[2017-04-27] MEDS: ATORVASTATIN 20 MG TAB PO SCH (08:45)
[2017-04-27] MEDS: LISINOPRIL 20 MG TAB PO SCH (08:45)
[2017-04-27] MEDS: NICOTINE 21 MG/24 HR PATCH T-DERMAL PRN (10:42)
--- NOTE | 2017-04-27 12:46 | HHI.PYPN ---
Subjective Remarks Pt seen and discussed with staff. Pt has been more cooperative, but remains very intrusive and inappropriately animated. Mood is labile. He expresses paranoid ideations. He is compliant with medications and denies side effects. No SI/HI Mental Status Examination Appearance: Appropriate Consciousness: Alert Orientation: Person, Place Motor Activity: Normal gait, Other (no motoric abnormalities noted) Speech: Other Language: Adequate Fund of Knowledge: Adequate Attention and Concentration: Easily Distracted Memory: Unremarkable Mood: Oppositional, Irritable Affect: Irritable, Labile Thought Process & Associations: Loose associations (perhaps a little more focused today) Thought Content: Bizarre thinking, Delusional Hallucination Type: None Delusion Type: Paranoid, Other (delusional thinking perhaps decreasing somewhat today) Suicidal Ideation: No Suicidal Plan: No Suicidal Intention: No Homicidal Ideation: No Homicidal Plan: No Homicidal Intention: No Insight: Poor Judgment: Poor Results Vitals/IOs Vital Signs Date Time Temp Pulse Resp B/P (MAP) Pulse Ox O2 Delivery O2 Flow Rate FiO2 04/27/17 06:25 97.1 104 19 131/84 (100) 95 Assessment & Plan Problem List: (1) Schizoaffective disorder ICD Codes: F25.9 - Schizoaffective disorder, unspecified Status: Acute (2) Polysubstance abuse ICD Codes: F19.10 - Other psychoactive substance abuse, uncomplicated (3) Antisocial personality traits Assessment & Plan Continue current tx plan. Estimated LOS: days Justification for Cont. Inpt. impairments in social functioning and reality testing Request HC Surrog/Guard Advoc?: Yes Problem Qualifiers (1) Schizoaffective disorder: Qualified Codes: F25.0 - Schizoaffective disorder, bipolar type Magi Judge MD Apr 27, 2017 12:45
[2017-04-27] MEDS: NEOMYCIN/POLYMYXIN/BACITRACIN OINT 15 GM TUBE TOPICAL SCH (15:31)
[2017-04-27 17:39] VITALS: BP 132/76; PULSE 86; RESP 19; TEMP 99; O2SAT 96
[2017-04-27] MEDS: LORazepam 1 MG TAB PO PRN (20:16)
[2017-04-27] MEDS: diphenhydrAMINE HCL 50 MG CAP PO PRN (20:16)
[2017-04-28] MEDS: IBUPROFEN 400 MG TAB PO SCH ×4 (05:50→23:50)
[2017-04-28 06:16] VITALS: BP 110/67; PULSE 75; RESP 17; TEMP 97.7; O2SAT 99
--- NOTE | 2017-04-28 08:17 | PD.TTN ---
Patient Problems 1. Discharge planning 2. Medication compliance 3. Knowledge deficit 4. Lack of coping skills Progress Toward Goals Provider Present: Dr. Massimo Gonzalez Provider Input: 04/26/17 somewhat remains threatening/inappropriate commenting, is being medicated and appears slowly responding to the medication treatment Psychiatric Counselors Present: Marce Bettencourt [facility] Psych Therapist Input: 04/26/17 patient remains inappropriate and intrusive, but no suicidal or homicidal thoughts, attempted to get with family for collateral Group Spec/RT/OT/MAC Present: SUSAN Fernando Group Spec/RT/OT/MAC Input: 04/26/17 patient attended select groups and needs constant redirections Olena Bailon LCSW Apr 28, 2017 08:17
[2017-04-28] MEDS: ATORVASTATIN 20 MG TAB PO SCH (08:22)
[2017-04-28] MEDS: TRIHEXYPHENIDYL HCL 2 MG TAB PO SCH ×2 (08:23→20:14)
[2017-04-28] MEDS: NEOMYCIN/POLYMYXIN/BACITRACIN OINT 15 GM TUBE TOPICAL SCH (08:23)
[2017-04-28] MEDS: DIVALPROEX SODIUM E.R. 500 MG TAB PO SCH (08:23)
[2017-04-28] MEDS: LISINOPRIL 20 MG TAB PO SCH (08:23)
[2017-04-28] MEDS: PROPRANOLOL HCL 40 MG TAB PO SCH (08:23)
[2017-04-28] MEDS: NICOTINE 21 MG/24 HR PATCH T-DERMAL PRN (08:24)
--- NOTE | 2017-04-28 13:18 | HHI.PYPN ---
Subjective Remarks Pt seen and discussed with staff. He has been more engaged in milieu activities today. He is compliant with medications. No SI/HI Mental Status Examination Appearance: Appropriate Consciousness: Alert Orientation: Person, Place Motor Activity: Normal gait, Other (no motoric abnormalities noted) Speech: Other Language: Adequate Fund of Knowledge: Adequate Attention and Concentration: Easily Distracted Memory: Unremarkable Mood: Oppositional, Irritable Affect: Irritable, Labile Thought Process & Associations: Tangential Thought Content: Bizarre thinking, Delusional Hallucination Type: None Delusion Type: Paranoid, Other (delusional thinking perhaps decreasing somewhat today) Suicidal Ideation: No Suicidal Plan: No Suicidal Intention: No Homicidal Ideation: No Homicidal Plan: No Homicidal Intention: No Insight: Poor Judgment: Poor Results Vitals/IOs Vital Signs Date Time Temp Pulse Resp B/P (MAP) Pulse Ox O2 Delivery O2 Flow Rate FiO2 04/28/17 06:16 97.7 75 17 110/67 (81) 99 Assessment & Plan Problem List: (1) Schizoaffective disorder ICD Codes: F25.9 - Schizoaffective disorder, unspecified Status: Acute (2) Polysubstance abuse ICD Codes: F19.10 - Other psychoactive substance abuse, uncomplicated (3) Antisocial personality traits Assessment & Plan Continue current tx plan. Estimated LOS: days Justification for Cont. Inpt. impairments in reality testing Request HC Surrog/Guard Advoc?: Yes Problem Qualifiers (1) Schizoaffective disorder: Qualified Codes: F25.0 - Schizoaffective disorder, bipolar type Magi Judge MD Apr 28, 2017 13:18
[2017-04-28 17:25] VITALS: BP 116/70; PULSE 80; RESP 17; TEMP 98.2; O2SAT 99
[2017-04-28] MEDS: diphenhydrAMINE HCL 50 MG CAP PO PRN (20:16)
[2017-04-28] MEDS: LORazepam 1 MG TAB PO PRN (20:16)
[2017-04-29 05:56] VITALS: BP 142/71; PULSE 78; RESP 17; TEMP 97.8; O2SAT 93
[2017-04-29] MEDS: IBUPROFEN 400 MG TAB PO SCH ×3 (06:00→17:28)
[2017-04-29 07:03] LABS: AUTOMATED NEUTROPHIL # 3.6 TH/MM3 (1.8-7.7); BASOPHIL % 0.5 % (0.0-2.0); EOSINOPHIL # 0.2 TH/MM3 (0-0.4); EOSINOPHIL % 2.7 % (0.0-4.0); HEMATOCRIT 38.7 % (39.0-51.0); HEMOGLOBIN 13.1 GM/DL (13.0-17.0); LYMPH % 34.6 % (9.0-44.0); LYMPHOCYTE # 2.5 TH/MM3 (1.0-4.8); MEAN CELL VOLUME 94.6 FL (80.0-100.0); MEAN CORPUSCULAR HEMOGLOBIN 31.9 PG (27.0-34.0); MEAN CORPUSCULAR HGB CONC 33.7 % (32.0-36.0); MEAN PLATELET VOLUME 8.2 FL (7.0-11.0); MONO % 11.5 % (0.0-8.0); MONOCYTE # 0.8 TH/MM3 (0-0.9); NEUT % 50.7 % (16.0-70.0); PLATELET COUNT 248 TH/MM3 (150-450); RED CELL DISTRIBUTION WIDTH 14.2 % (11.6-17.2); WHITE BLOOD COUNT 7.1 TH/MM3 (4.0-11.0)
[2017-04-29] MEDS: ATORVASTATIN 20 MG TAB PO SCH (08:20)
[2017-04-29] MEDS: NEOMYCIN/POLYMYXIN/BACITRACIN OINT 15 GM TUBE TOPICAL SCH (08:20)
[2017-04-29] MEDS: TRIHEXYPHENIDYL HCL 2 MG TAB PO SCH ×2 (08:20→20:16)
[2017-04-29] MEDS: PROPRANOLOL HCL 40 MG TAB PO SCH (08:21)
[2017-04-29] MEDS: DIVALPROEX SODIUM E.R. 500 MG TAB PO SCH (08:21)
[2017-04-29] MEDS: LISINOPRIL 20 MG TAB PO SCH (08:21)
[2017-04-29] MEDS: NICOTINE 21 MG/24 HR PATCH T-DERMAL PRN (08:21)
--- NOTE | 2017-04-29 13:49 | HHI.PYPN ---
Subjective Remarks Reviewed electronic medical record, labs, and discussed case with staff. Follow -up Mr. Massey was performed in the activity room. Patient's mood good, his affect euthymic. Speech is clear, logical, and organized. He once again complains of his chronic pain issues and requests Lortab. Additionally, today he mentions having bright red blood on his tissue paper when he wipes reports a history of hemorrhoids. Overall patient's condition seems much improved from Saturday. Discussed with the patient the fact that his mother would like him on IM administration of medications that he is adamantly refused on Saturday. Today he expresses a willingness to comply if this will allow him to be discharged more quickly. Orders have been entered to start him on that medication regimen , and medical consult will be ordered for his hemorrhoids. His counselor is attempting to contact mother by phone to formulate a discharge plan. Mental Status Examination Appearance: Appropriate Consciousness: Alert Orientation: x4 Motor Activity: Normal gait, Other (no motoric abnormalities noted) Speech: Unremarkable Language: Adequate Fund of Knowledge: Adequate Attention and Concentration: Adequate Memory: Unremarkable Mood: Appropriate Affect: Appropriate, Euthymic, Labile Thought Process & Associations: Intact Thought Content: Appropriate, Delusional Hallucination Type: None Delusion Type: Paranoid, Other (delusional thinking perhaps decreasing somewhat today) Suicidal Ideation: No Suicidal Plan: No Suicidal Intention: No Homicidal Ideation: No Homicidal Plan: No Homicidal Intention: No Insight: Poor Judgment: Poor Results Labs Test 04/29/17 05:49 White Blood Count 7.1 TH/MM3 Red Blood Count 4.10 MIL/MM3 Hemoglobin 13.1 GM/DL Hematocrit 38.7 % Mean Corpuscular Volume 94.6 FL Mean Corpuscular Hemoglobin 31.9 PG Mean Corpuscular Hemoglobin Concent 33.7 % Red Cell Distribution Width 14.2 % Platelet Count 248 TH/MM3 Mean Platelet Volume 8.2 FL Neutrophils (%) (Auto) 50.7 % Lymphocytes (%) (Auto) 34.6 % Monocytes (%) (Auto) 11.5 % Eosinophils (%) (Auto) 2.7 % Basophils (%) (Auto) 0.5 % Neutrophils # (Auto) 3.6 TH/MM3 Lymphocytes # (Auto) 2.5 TH/MM3 Monocytes # (Auto) 0.8 TH/MM3 Eosinophils # (Auto) 0.2 TH/MM3 Basophils # (Auto) 0.0 TH/MM3 CBC Comment DIFF FINAL Differential Comment Vitals/IOs Vital Signs Date Time Temp Pulse Resp B/P (MAP) Pulse Ox O2 Delivery O2 Flow Rate FiO2 04/29/17 05:56 97.8 78 17 142/71 (94) 93 Assessment & Plan Problem List: (1) Schizoaffective disorder ICD Codes: F25.9 - Schizoaffective disorder, unspecified Status: Acute (2) Polysubstance abuse ICD Codes: F19.10 - Other psychoactive substance abuse, uncomplicated (3) Antisocial personality traits Assessment & Plan Estimated LOS: Patient to be started on IM medication regimen. Discharge planning in progress. Justification for Cont. Inpt. Moving this patient to a lower level of care at this time will likely result in decompensation. Discharge planning in progress. Request HC Surrog/Guard Advoc?: Yes Problem Qualifiers (1) Schizoaffective disorder: Qualified Codes: F25.0 - Schizoaffective disorder, bipolar type Lovely Bojorquez Apr 29, 2017 13:49
--- NOTE | 2017-04-29 14:51 | PD.CONS ---
HPI Service [facility] Consult Requested By SPENCER Duncan Reason for Consult Rectal bleeding Primary Care Physician Cortes Cheek DO Diagnoses: History of Present Illness 51-year-old male brought to emergency department under [place] act by police due to acute agitation and psychosis after arguing with tenet. Patient with a past medical history of chronic back pain after injury, hypertension, hyperlipidemia , hypertriglyceridemia, and hemorrhoids. [facility] consulted due to reported rectal bleeding from patient today. He is seen and examined sitting up in a chair in the [facility] and reports that he has a known history of hemorrhoids and regularly uses suppositories at home for relief. His last colonoscopy was in March 2014 or 2015 at [facility] for which noncancerous polyps were removed. He reports that he has tenderness when wiping after bowel movement along with blood in tissue. He denies any blood in toilet or in stool , denies any abdominal pain, constipation, diarrhea, black or tarry stools. He denies any past medical history of upper GI bleed, denies nausea, vomiting, lightheadedness, dizziness, shortness of breath or chest pains. Patient is also requesting Lortab for back pain as he is followed by pain management on a regular basis. He would also like to know when he will be leaving the hospital as he is worried about mother at home who requires [id number] straight catheterization which patient reports is done by him. Review of Systems Except as stated in HPI: all other systems reviewed are Neg Past Family Social History Allergies: Coded Allergies: No Known Allergies (Unverified Allergy, Unknown, 04/19/17) Per pt. Past Medical History Hypertension Hyperlipidemia Hypertriglyceridemia Chronic back pain Hemorrhoids Past Surgical History Tonsillectomy Appendectomy Back surgery involving laser Reported Medications Reported Meds & Active Scripts Active Reported Propranolol (Propranolol HCl) 40 Mg Tab 40 Mg PO Q12HR Geodon (Ziprasidone) 40 Mg Cap 40 Mg PO BID Trihexyphenidyl (Trihexyphenidyl HCl) 2 Mg Tab 2 Mg PO BID Trazodone (Trazodone HCl) 50 Mg Tab 50 Mg PO HS Seroquel (Quetiapine Fumarate) 200 Mg Tab 200 Mg PO HS Active Ordered Medications Current Medications Medications (Trade) Dose Ordered Sig/Kerline Route Start Time Stop Time Status Last Admin (Artane) 2 mg BID PO 04/19/17 21:00 04/29/17 08:20 (Ativan) 1 mg Q6H PRN PO 04/19/17 16:15 04/28/17 20:16 (Ativan Inj) 1 mg Q6H PRN IM 04/19/17 16:15 04/23/17 23:06 (Tylenol) 650 mg Q4H PRN PO 04/19/17 16:15 04/26/17 17:12 (Milk Of Magnesia Liq) 30 ml DAILY PRN PO 04/19/17 16:15 (Mag-Al Plus Susp Liq) 30 ml Q6H PRN PO 04/19/17 16:15 (Depakote Er) 2,000 mg DAILY PO 04/23/17 11:15 04/29/17 08:21 (Benadryl) 50 mg Q6H PRN PO 04/23/17 11:15 04/28/17 20:16 (Benadryl Inj) 50 mg Q6H PRN IM 04/23/17 11:15 (Inderal) 40 mg DAILY PO 04/24/17 09:00 04/29/17 08:21 (Prinivil) 20 mg DAILY PO 04/23/17 12:15 04/29/17 08:21 (Lipitor) 40 mg DAILY PO 04/23/17 12:15 04/29/17 08:20 (Habitrol 21 Mg Patch.24 Hr) 1 patch DAILY PRN T-DERMAL 04/24/17 11:00 04/29/17 08:21 Miscellaneous Information 1 HS PRN T-DERMAL 04/24/17 21:00 (Neosporin Oint) 1 applic DAILY TOPICAL 04/26/17 11:30 04/29/17 08:20 (Motrin) 400 mg Q6HR PO 04/26/17 12:30 04/29/17 12:41 (Prolixin) 5 mg BID PO 04/29/17 21:00 Family History Father: Heart disease Denies any past family history of colon/GI cancer Social History Tobacco: 24 cigarettes a day for the past 3-4 years Alcohol: 1-2 beers a month Illicit drug use: Marijuana daily Physical Exam Vital Signs Vital Signs Date Time Temp Pulse Resp B/P (MAP) Pulse Ox O2 Delivery O2 Flow Rate FiO2 04/29/17 05:56 97.8 78 17 142/71 (94) 93 04/28/17 17:25 98.2 80 17 116/70 (85) 99 Physical Exam GENERAL: This is a well-nourished, well-developed patient, in no apparent distress. SKIN: No rashes, ecchymoses or lesions. Cool and dry. HEAD: Atraumatic. Normocephalic. EYES: Pupils equal round and reactive. No scleral icterus. No injection or drainage. ENT: Nose without bleeding, purulent drainage. Uvula midline. Airway patent. NECK: Trachea midline. No JVD. Supple, nontender. CARDIOVASCULAR: Regular rate and rhythm without murmurs, gallops, or rubs. RESPIRATORY: Clear to auscultation. Breath sounds equal bilaterally. No wheezes , rales, or rhonchi. GASTROINTESTINAL: Abdomen soft, obese, non-tender, nondistended. No guarding. MUSCULOSKELETAL: Extremities without clubbing, cyanosis, or edema. No joint tenderness, effusion, or edema noted. No calf tenderness. Ambulating without difficulties or assistance, gait normal. NEUROLOGICAL: Awake and alert. Cranial nerves II through XII intact. Motor and sensory grossly within normal limits. Five out of 5 muscle strength in all muscle groups. Normal speech. Laboratory Laboratory Tests Test 04/29/17 05:49 White Blood Count 7.1 Red Blood Count 4.10 Hemoglobin 13.1 Hematocrit 38.7 Mean Corpuscular Volume 94.6 Mean Corpuscular Hemoglobin 31.9 Mean Corpuscular Hemoglobin Concent 33.7 Red Cell Distribution Width 14.2 Platelet Count 248 Mean Platelet Volume 8.2 Neutrophils (%) (Auto) 50.7 Lymphocytes (%) (Auto) 34.6 Monocytes (%) (Auto) 11.5 Eosinophils (%) (Auto) 2.7 Basophils (%) (Auto) 0.5 Neutrophils # (Auto) 3.6 Lymphocytes # (Auto) 2.5 Monocytes # (Auto) 0.8 Eosinophils # (Auto) 0.2 Basophils # (Auto) 0.0 CBC Comment DIFF FINAL Differential Comment Result Diagram: 04/29/17 0549 Assessment and Plan Assessment and Plan 51-year-old male brought to emergency department under [place] act by police due to acute agitation and psychosis after arguing with tenet. Patient with a past medical history of chronic back pain after injury, hypertension, hyperlipidemia , hypertriglyceridemia, and hemorrhoids. [facility] consulted due to reported rectal bleeding. Rectal bleeding - Bleeding with tissue wiping, likely hemorrhoids as he has history, CBC reviewed with no anemia. - Hydrocortisone suppositories, Tucks pads - Can follow up with GI once D/C if severe or persistent bleeding HTN, stable HLD - continue dose of Lisinopril 20mg QD, Inderal 40mg QD - Continue Lipitor Chronic back pain - No weakness or deficit noted, can continue Ibuprofen and alternate with Tylenol for pain relief - Follow up with pain management once D/C Tobacco/marijuana abuse - Counseled on importance of cessation DVT prophylaxis-ambulating Discussed with nurse. Thank you for this consultation, [facility] will sign off, please reconsult if needed. Eli Chand Apr 29, 2017 14:51
[2017-04-29] MEDS ORDERED: WITCH HAZEL 50%/GLYCERIN 12.5% 40 PAD JAR TOPICAL PRN (15:00)
[2017-04-29 17:13] VITALS: BP 138/84; PULSE 86; RESP 16; TEMP 98.9; O2SAT 99
[2017-04-29] MEDS: HYDROCORTISONE ACETATE 25 MG SUPP RECTAL SCH (17:28)
[2017-04-29] MEDS: diphenhydrAMINE HCL 50 MG CAP PO PRN (20:16)
[2017-04-30] MEDS: LORazepam 1 MG TAB PO PRN (04:26)
[2017-04-30] MEDS: DIVALPROEX SODIUM E.R. 500 MG TAB PO SCH (08:24)
[2017-04-30] MEDS: LISINOPRIL 20 MG TAB PO SCH (08:24)
[2017-04-30] MEDS: TRIHEXYPHENIDYL HCL 2 MG TAB PO SCH (08:24)
[2017-04-30] MEDS: PROPRANOLOL HCL 40 MG TAB PO SCH (08:24)
[2017-04-30] MEDS: ATORVASTATIN 20 MG TAB PO SCH (08:24)
[2017-04-30] MEDS: HYDROCORTISONE ACETATE 25 MG SUPP RECTAL SCH ×2 (08:29→13:36)
[2017-04-30] MEDS: NEOMYCIN/POLYMYXIN/BACITRACIN OINT 15 GM TUBE TOPICAL SCH (08:29)
[2017-04-30] MEDS: IBUPROFEN 400 MG TAB PO SCH ×3 (08:39→12:37)
[2017-04-30] MEDS: NICOTINE 21 MG/24 HR PATCH T-DERMAL PRN (09:53)
[2017-04-30] MEDS ORDERED: DIPH50CA PO (13:53)
[2017-04-30] MEDS ORDERED: TRIH2 PO (13:53)
[2017-04-30] MEDS ORDERED: DEPA500T3 PO (13:53)
[2017-04-30] MEDS ORDERED: FLUP5TAB PO (14:01)
--- NOTE | 2017-04-30 14:14 | HHI.DS ---
Psychiatry Discharge Summary Inpatient Psychiatric care?: Yes Advance Directive: No Reason Not Provided: Due to Patient Condition Mental Health AdvanceDirective: No Health Care Proxy: No Admission Admission Date Apr 19, 2017 at 16:10 Admission Diagnosis: (1) Schizoaffective disorder ICD Code: F25.9 - Schizoaffective disorder, unspecified Brief History The patient is a 51-year-old man, domiciled wit his mother, unemployed, single, supported by [facility], [facility] of bipolar disorder, alcohol,. cannabis and cocaine use disorder, mult hospitalizations, no SAs, last hospitalization was here in [place] in 2016, outpatient care in [facility], he is on Geodon 80 bid, Seroquel 150 mg HS, propranolol 10 tid for akathisia, trazodone 150 hs, no significant medical history, who presents emergency department under [place] act by PD. Patient had gotten upset with a tenent for not paying the rent. An argument escalated. Please were involved. Patient then became acutely agitated and psychotic. He made homicidal statements towards the police officers. The patient was taken down and brought to the ER under a [place] act. Patient here is very agitated and psychotic. The patient admits to alcohol and to tobacco. He denies any other drugs. He denies any medical complaints. He states that he has a history of psychiatric problems, hypertension and wants his medications. On arrival to ER patient is so hostile and agitated that had to be medicated with Geodon 10 mg im and Benadryl 50 im in order to calm him down. When I see him is very sedated and just partially cooperative. he says he is here "because my IQ is too high and those mother f.....s wanted to kill me". This morning he allegedly destroyed his mother doctor office, when I confronted him about this issue he says "I wanted my medical records and my mothers medical records and they did not wanted to give it to me". His toxicology is positive for cocaine and cannabis and his BAL is 135. I tried to get collateral information form his mother [phone], but she did not sheepskin pickler the phone. Tobacco Use In Past 30 Days: 5 or More Cigarettes/Day Alcohol Use: Monthly or Less Hospital Course Mr. Massey is a 51-year-old single, white male who was admitted to a locked inpatient psychiatric unit. All safety precautions were maintained during his visit. He was visited daily by a psychiatric provider as well as being followed by counselor. While inpatient his antipsychotic medication was changed to Prolixin. He has responded well to the medication, denies side effects, no reported motor abnormalities, and has been started on a long acting IM dose. While on the Prolixin Mr. Massey has showed marked improvement. His speech has become less pressured and rapid. Today he reports that he "realizes he acted stupid lately and deserved to be here". Patient's counselor has reached out to his mother who is willing to have him return to the home. Patient is future oriented and states that he will follow-up with [facility]. Today his speech is clear, logical, and organized. He denies any thoughts of self-harm, homicidal ideation, auditory or visual hallucinations. He still presents with mild persecutory delusions however, they are vague and have decreased in intensity, he is also easily redirected. It is my belief that patient has reached maximum benefit from this inpatient admission, and there is no indication that he presents an eminent danger to himself or others. He no longer meets [place] act or admission criteria. He will be discharged home with follow-up instructions. Results Blood Pressure 138 / 84 Vital Signs Date Time Temp Pulse Resp B/P (MAP) Pulse Ox O2 Delivery O2 Flow Rate FiO2 04/29/17 17:13 98.9 86 16 138/84 (102) 99 Laboratory Tests Test 04/29/17 05:49 Red Blood Count 4.10 MIL/MM3 (4.50-5.90) Hematocrit 38.7 % (39.0-51.0) Monocytes (%) (Auto) 11.5 % (0.0-8.0) Laboratory Results Test 04/20/17 09:00 04/26/17 09:10 Cholesterol Level 104 MG/DL (120-200) HDL Cholesterol 49.0 MG/DL (40.0-60.0) Hemoglobin A1c 5.6 % (4.3-6.0) LDL Cholesterol 35 MG/DL (0-99) Triglycerides Level 100 MG/DL (42-150) Valproic Acid (Depakene) Level 98 MCG/ML (50-100) Summary of Procedures None Pending results at discharge: No Medications # of Antipsychotic meds at D/C: 1 Approp Antipsych med options 1 - Minimum of three failed multiple trials of monotherapy. 2 - Documented plan to taper to monotherapy due to previous use of multiple meds OR cross-taper in progress at D/C. 3 - Documentation of augmentation of Clozapine. 4 - Justification other than those listed in allowable values 1-3, document here : Discharge Discharge Date: Apr 30, 2017 Discharge Diagnosis: (1) Schizoaffective disorder Diagnosis: Principal ICD Code: F25.9 - Schizoaffective disorder, unspecified Status: Acute Pt Condition on Discharge: Stable Discharge Disposition: Discharge Home Discharge Instructions Diet Instructions: As Tolerated, No Restrictions Activities you can perform: Regular-No Restrictions Discharge Time > 30 minutes Mental Status Examination Appearance: Appropriate Consciousness: Alert Orientation: x4 Motor Activity: Normal gait, Other (no motoric abnormalities noted) Speech: Unremarkable Language: Adequate Fund of Knowledge: Adequate Attention and Concentration: Adequate Memory: Unremarkable Mood: Appropriate Affect: Appropriate, Euthymic, Labile Thought Process & Associations: Intact Thought Content: Appropriate, Delusional Hallucination Type: None Delusion Type: Paranoid, Other (delusional thinking perhaps decreasing somewhat today) Suicidal Ideation: No Suicidal Plan: No Suicidal Intention: No Homicidal Ideation: No Homicidal Plan: No Homicidal Intention: No Insight: Poor Judgment: Poor Discharge/Advance Care Plan Health Problems: (1) Schizoaffective disorder (2) Polysubstance abuse (3) Antisocial personality traits Goals to promote your health * To prevent worsening of your condition and complications * To maintain your health at the optimal level Directions to meet your goals Take your medications as prescribed Follow your dietary instruction Follow activity as directed Keep your appointments as scheduled Take your immunizations and boosters as scheduled If your symptoms worsen call your PCP, if no PCP go to Urgent Care Center or Emergency Room For 24/ questions related to your inpatient stay or results of tests pending at discharge, please contact Dr. Lovely Bojorquez at Smoking is Dangerous to Your Health. Avoid second hand smoking Problem Qualifiers (1) Schizoaffective disorder: Qualified Codes: F25.0 - Schizoaffective disorder, bipolar type Lovely Bojorquez Apr 30, 2017 14:14
== END 2017-04-30 15:35 | disposition home or self-care (01) | DRG 885 ==
LOC: NEPD 21:54 → NEDA 04-19 16:10 → H270 04-19 17:15 → H260 04-30 08:10
PROVIDERS: ADMIT Student in an Organized Health Care Education/Training Program; ATTEND Student in an Organized Health Care Education/Training Program
DX: F25.9 Schizoaffective disorder, unspecified (principal); G25.71 Drug induced akathisia; I10 Essential (primary) hypertension; F12.10 Cannabis abuse, uncomplicated; Z72.89 Other problems related to lifestyle; Y90.6 Blood alcohol level of 120-199 mg/100 ml; Z78.1 Physical restraint status; G89.29 Other chronic pain; M54.9 Dorsalgia, unspecified; F17.210 Nicotine dependence, cigarettes, uncomplicated; F19.10 Other psychoactive substance abuse, uncomplicated; E78.5 Hyperlipidemia, unspecified; K64.9 Unspecified hemorrhoids; Z23 Encounter for immunization
CPT/HCPCS: 80048; 80053; 80061; 80076; 80164; 80307; 82140; 83036; 84443; 85025; 90686; 90732; 93005; 96372; J1200; J1630; J2060; J2680; J3486; Q0163; Q2038

== ENCOUNTER 2017-05-06 03:07 | Inpatient (IN) | payer OTHER ==
[~2017-05-06] VITALS: Ht 175.3 cm; Wt 90.0 kg
[~2017-05-06 03:07] MED LIST changes: +DEPA500T3 PO; +DIPH50CA PO; +FLUP5TAB PO; -GEMF600T PO; -LAMO25TA PO; -LISI-360 PO; +PROP40TA3 PO; -ZOCO40TA PO
[2017-05-06 03:25] VITALS: BP 134/80; PULSE 88; RESP 16; TEMP 98.5; O2SAT 99
--- NOTE | 2017-05-06 03:50 | PD ---
HPI Chief Complaint: BA Time Seen by Provider: 03:46 Travel History International Travel<30 days: No Contact w/Intl Traveler<30days: No Traveled to known affect area: No History of Present Illness HPI This is a 51-year-old male with history of bipolar disorder who presents under [place] act initiated by the Police Department. According to his paperwork, "Mr. Tejeda made several calls to 911 in reference to people trying to hurt him. Mr. Tejeda is bipolar and has ingested several different medications. Upon [facility] to [facility], it was revealed that he was hallucinating. His roommate was asleep and advised that Mr. Massey was on a drug and alcohol binge. " The patient reports that tonight he was upset at his roommate because his roommate drinks alcohol the time and he has to buy it for him. He reports that he gotten several arguments with his roommate gian and this resulted in the patient calling 911 several times. The patient denies having any hallucinations. He denies ingesting any nonprescribed medications. He reports that tonight he took his typical prescribed doses of Seroquel, propranolol, gemfibrozil, simvastatin, lisinopril, prolixin. He did not ingest any additional doses. He admits to using marijuana today and he admits to drinking 1 beer at 3 PM yesterday at week. He denies any other substance use. He denies any suicidal or homicidal ideation. He has no medical complaints at this time. PFSH Past Medical History Bipolar Disorder: Yes Anxiety: Yes Depression: No Cancer: No Cardiovascular Problems: No Diabetes: No Diminished Hearing: No Endocrine: No Genitourinary: No Headaches: No Hepatitis: Yes Hypertension: Yes Immune Disorder: No Musculoskeletal: No Neurologic: No Psychiatric: Yes (Schizoaffective Disorder) Reproductive: No Respiratory: No Immunizations Current: Yes Seizures: No Past Surgical History Abdominal Surgery: Yes (APPENDECTOMY 1992) Appendectomy: Yes (1992) Neurologic Surgery: Yes (LASER SURGERY BACK) Tonsillectomy: Yes (1994) Other Surgery: Yes (NOSE REPAIR) Social History Alcohol Use: Yes (occasionally) Tobacco Use: Yes (cloves pack a day) Substance Use: Yes (MARIJUANA DAILY) Allergies-Medications (Allergen,Severity, Reaction): Coded Allergies: No Known Allergies (Unverified Allergy, Unknown, 3/2/18) Per pt. Reported Meds & Prescriptions Reported Meds & Active Scripts Active Fluphenazine (Fluphenazine HCl) 5 Mg Tab 5 Mg PO BID 14 Days Depakote ER (Divalproex Sodium) 500 Mg Adilia 2,000 Mg PO DAILY 14 Days Diphenhydramine HCl 50 Mg Cap 50 Mg PO Q6H PRN 14 Days Trihexyphenidyl (Trihexyphenidyl HCl) 2 Mg Tab 2 Mg PO BID 30 Days Reported Propranolol (Propranolol HCl) 40 Mg Tab 40 Mg PO Q12HR Review of Systems Except as stated in HPI: all other systems reviewed are Neg Physical Exam Narrative GENERAL: Well-developed well-nourished male in no acute distress SKIN: Warm and dry. HEAD: Atraumatic. Normocephalic. EYES: Pupils equal and round. No scleral icterus. No injection or drainage. ENT: No nasal bleeding or discharge. Mucous membranes pink and moist. NECK: Trachea midline. No JVD. CARDIOVASCULAR: Regular rate and rhythm. No murmur appreciated. RESPIRATORY: No accessory muscle use. Clear to auscultation. Breath sounds equal bilaterally. GASTROINTESTINAL: Abdomen soft, non-tender, nondistended. Hepatic and splenic margins not palpable. MUSCULOSKELETAL: No obvious deformities. No clubbing. No cyanosis. No edema. NEUROLOGICAL: Awake and alert. No obvious cranial nerve deficits. Motor grossly within normal limits. Normal speech. PSYCHIATRIC: Hyper verbose, flat affect; insight and judgment normal. Data Data Last Documented VS Vital Signs Date Time Temp Pulse Resp B/P (MAP) Pulse Ox O2 Delivery O2 Flow Rate FiO2 05/06/17 03:25 98.5 88 16 134/80 (98) 99 Orders Orders Complete Blood Count With Diff (05/06/17 03:13) Comprehensive Metabolic Panel (05/06/17 03:13) Thyroid Stimulating Hormone (05/06/17 03:13) Psych Screen (05/06/17 03:13) Drug Screen, Random Urine (05/06/17 03:13) Alcohol (Ethanol) (05/06/17 03:13) Salicylates (Aspirin) (05/06/17 03:38) Tylenol (Acetaminophen) (05/06/17 03:30) Labs Laboratory Tests Test 05/06/17 03:30 White Blood Count 10.3 TH/MM3 Red Blood Count 4.09 MIL/MM3 Hemoglobin 13.0 GM/DL Hematocrit 38.7 % Mean Corpuscular Volume 94.7 FL Mean Corpuscular Hemoglobin 31.9 PG Mean Corpuscular Hemoglobin Concent 33.6 % Red Cell Distribution Width 14.5 % Platelet Count 289 TH/MM3 Mean Platelet Volume 8.5 FL Neutrophils (%) (Auto) 69.9 % Lymphocytes (%) (Auto) 19.0 % Monocytes (%) (Auto) 10.5 % Eosinophils (%) (Auto) 0.3 % Basophils (%) (Auto) 0.3 % Neutrophils # (Auto) 7.2 TH/MM3 Lymphocytes # (Auto) 2.0 TH/MM3 Monocytes # (Auto) 1.1 TH/MM3 Eosinophils # (Auto) 0.0 TH/MM3 Basophils # (Auto) 0.0 TH/MM3 CBC Comment DIFF FINAL Differential Comment Blood Urea Nitrogen 6 MG/DL Creatinine 0.95 MG/DL Random Glucose 105 MG/DL Total Protein 8.0 GM/DL Albumin 3.5 GM/DL Calcium Level 9.2 MG/DL Alkaline Phosphatase 101 U/L Aspartate Amino Transf (AST/SGOT) 32 U/L Alanine Aminotransferase (ALT/SGPT) 20 U/L Total Bilirubin 0.3 MG/DL Sodium Level 142 MEQ/L Potassium Level 4.5 MEQ/L Chloride Level 107 MEQ/L Carbon Dioxide Level 26.3 MEQ/L Anion Gap 9 MEQ/L Estimat Glomerular Filtration Rate 84 ML/MIN Thyroid Stimulating Hormone 3rd Gen 0.849 uIU/ML Salicylates Level 2.8 MG/DL Urine Opiates Screen NEG Urine Barbiturates Screen NEG Urine Amphetamines Screen NEG Urine Benzodiazepines Screen POS Urine Cocaine Screen NEG Urine Cannabinoids Screen POS [facility] Medical Decision Making Medical Screen Exam Complete: Yes Emergency Medical Condition: Yes Medical Record Reviewed: Yes Differential Diagnosis Adjustment reaction, bipolar disorder, acute psychosis, substance-induced mood disorder Narrative Course 51-year-old male with history of bipolar disorder presents under Queen act for psychiatric evaluation. Mental health screening discussed with the patient. Psychiatric screen ordered. Lab work has been reviewed and is notable for positive benzodiazepine, cannabinoids screening. He is medically cleared for psychiatric disposition. Diagnosis Primary Impression: Medical clearance for psychiatric admission Jean Haque May 06, 2017 03:50
[2017-05-06 04:35] LABS: AUTOMATED NEUTROPHIL # 7.2 TH/MM3 (1.8-7.7); BASOPHIL % 0.3 % (0.0-2.0); EOSINOPHIL % 0.3 % (0.0-4.0); HEMATOCRIT 38.7 % (39.0-51.0); MEAN CELL VOLUME 94.7 FL (80.0-100.0); MEAN CORPUSCULAR HEMOGLOBIN 31.9 PG (27.0-34.0); MEAN CORPUSCULAR HGB CONC 33.6 % (32.0-36.0); MEAN PLATELET VOLUME 8.5 FL (7.0-11.0); MONO % 10.5 % (0.0-8.0); MONOCYTE # 1.1 TH/MM3 (0-0.9); NEUT % 69.9 % (16.0-70.0); PLATELET COUNT 289 TH/MM3 (150-450); RED BLOOD COUNT 4.09 MIL/MM3 (4.50-5.90); RED CELL DISTRIBUTION WIDTH 14.5 % (11.6-17.2); WHITE BLOOD COUNT 10.3 TH/MM3 (4.0-11.0)
[2017-05-06 04:55] LABS: ALBUMIN 3.5 GM/DL (3.4-5.0); ALT (GPT) 20 U/L (12-78); AST (GOT) 32 U/L (15-37); BICARBONATE 26.3 MEQ/L (21.0-32.0); BLOOD UREA NITROGEN 6 MG/DL (7-18); CALCIUM 9.2 MG/DL (8.5-10.1); CHLORIDE 107 MEQ/L (98-107); CREATININE 0.95 MG/DL (0.60-1.30); GLOMERULAR FILTRATION RATE 84 ML/MIN (>89); GLUCOSE,RANDOM 105 MG/DL (74-106); SODIUM (NA) 142 MEQ/L (136-145)
[2017-05-06 05:05] LABS: ALKALINE PHOSPHATASE 101 U/L (45-117); TOTAL BILIRUBIN ADULT 0.3 MG/DL (0.2-1.0)
[2017-05-06 05:32] LABS: ACETAMINOPHEN LESS THAN 2.0 MCG/ML (10.0-30.0)
[2017-05-06 06:21] VITALS: BP 140/86; PULSE 82; RESP 16; TEMP 98.6; O2SAT 100
[2017-05-06 10:27] VITALS: BP 104/56; PULSE 80; RESP 18; O2SAT 100
[2017-05-06] MEDS ORDERED: DIVALPROEX SODIUM E.R. 500 MG TAB PO ONE (12:30)
[2017-05-06] MEDS ORDERED: PROPRANOLOL HCL 40 MG TAB PO ONE (12:30)
[2017-05-06] MEDS ORDERED: TRIHEXYPHENIDYL HCL 2 MG TAB PO ONE (12:30)
[2017-05-06] MEDS ORDERED: SIMV40TA PO (13:07)
[2017-05-06] MEDS ORDERED: SERO200T PO (13:07)
[2017-05-06] MEDS ORDERED: LISI40TA PO (13:07)
[2017-05-06] MEDS ORDERED: GEMF600 PO (13:07)
[2017-05-06] MEDS ORDERED: GEMFIBROZIL 600 MG TAB PO ONE (14:15)
[2017-05-06] MEDS ORDERED: LISINOPRIL 20 MG TAB PO ONE (14:15)
--- NOTE | 2017-05-06 16:39 | PD ---
History of Present Illness Chief Complaint: Adjustment disorder Time Seen by Provider: 16:37 Travel History International Travel<30 Days: No Contact w/Intl Traveler<30days: No Known affected area: No Legal Status Legal Status: Queen Act Queen Act Signed By: [facility] History of Present Illness: This is a 51-year-old single, male who presents under a Queen act placed by [facility] Sheriff's office. Per the Queen act "Mr. lloyd made several calls to 911 in reference to people trying to hurt him. Mr. lloyd is bipolar and has ingested several different medications. Upon arriving [facility] it was revealed that he was hallucinating. His roommate was asleep and advised that Mr. lloyd was on a drug and alcohol binge. PFSH Past Medical History Bipolar Disorder: Yes Anxiety: Yes Depression: No Cancer: No Cardiovascular Problems: No Diabetes: No Diminished Hearing: No Endocrine: No Genitourinary: No Headaches: No Hepatitis: Yes Hypertension: Yes Immune Disorder: No Musculoskeletal: No Neurologic: No Psychiatric: Yes (Schizoaffective Disorder) Reproductive: No Respiratory: No Immunizations Current: Yes Seizures: No Past Surgical History Abdominal Surgery: Yes (APPENDECTOMY 1992) Appendectomy: Yes (1992) Neurologic Surgery: Yes (LASER SURGERY BACK) Tonsillectomy: Yes (1994) Other Surgery: Yes (NOSE REPAIR) Psychiatric History Psychiatric History Hx Psychiatric Treatment: BIPOLAR, ADHD, OCD, ANXIETY History of Inpatient Treatment: Yes Social History Hx Alcohol Use: Yes (occasionally) Hx Tobacco Use: Yes (cloves (4) packs a day) Hx Substance Use: Yes Substance Use Type: Alcohol, Crack, Marijuana, Cocaine Other Substances Used: "3-6 BEERS/MONTH, COCAINE 1 MONTH AGO, CRACK 1 YR AGO, 1 /2 OZ MARIJUANA/WK" Hx of Substance Use Treatment: Yes Allergies-Medications (Allergen,Severity, Reaction): Coded Allergies: No Known Allergies (Verified Allergy, Unknown, 05/06/17) Per pt. Reported Meds & Prescriptions Reported Meds & Active Scripts Active Fluphenazine (Fluphenazine HCl) 5 Mg Tab 5 Mg PO BID 14 Days Depakote ER (Divalproex Sodium) 500 Mg Adilia 2,000 Mg PO DAILY 14 Days Trihexyphenidyl (Trihexyphenidyl HCl) 2 Mg Tab 2 Mg PO BID 30 Days Reported Seroquel (Quetiapine Fumarate) 200 Mg Tab 200 Mg PO HS Lopid (Gemfibrozil) 600 Mg Tab 600 Mg PO BIDAC Take 30 minutes prior to breakfast and dinner Simvastatin 40 Mg Tab 40 Mg PO HS Lisinopril 40 Mg Tab 40 Mg PO DAILY Propranolol (Propranolol HCl) 40 Mg Tab 40 Mg PO Q12HR MDM Orders Orders Complete Blood Count With Diff (05/06/17 03:13) Comprehensive Metabolic Panel (05/06/17 03:13) Thyroid Stimulating Hormone (05/06/17 03:13) Psych Screen (05/06/17 03:13) Drug Screen, Random Urine (05/06/17 03:13) Alcohol (Ethanol) (05/06/17 03:13) Salicylates (Aspirin) (05/06/17 03:38) Tylenol (Acetaminophen) (05/06/17 03:30) Diet Regular Basic (05/06/17 Breakfast) Diet Regular Basic (05/06/17 Lunch) Propranolol (Inderal) (05/06/17 12:30) Divalproex Er (Depakote Er) (05/06/17 12:30) Fluphenazine (Prolixin) (05/06/17 12:30) Trihexyphenidyl (Artane) (05/06/17 12:30) Valproic Acid (Depakene) (05/06/17 13:05) Gemfibrozil (Lopid) (05/06/17 14:15) Lisinopril (Prinivil) (05/06/17 14:15) Results Vital Signs Date Time Temp Pulse Resp B/P (MAP) Pulse Ox O2 Delivery O2 Flow Rate FiO2 05/06/17 10:27 80 18 104/56 (72) 100 Room Air 05/06/17 06:21 98.6 82 16 140/86 (104) 100 Room Air 05/06/17 03:25 98.5 88 16 134/80 (98) 99 Laboratory Tests Test 05/06/17 03:30 White Blood Count 10.3 Red Blood Count 4.09 Hemoglobin 13.0 Hematocrit 38.7 Mean Corpuscular Volume 94.7 Mean Corpuscular Hemoglobin 31.9 Mean Corpuscular Hemoglobin Concent 33.6 Red Cell Distribution Width 14.5 Platelet Count 289 Mean Platelet Volume 8.5 Neutrophils (%) (Auto) 69.9 Lymphocytes (%) (Auto) 19.0 Monocytes (%) (Auto) 10.5 Eosinophils (%) (Auto) 0.3 Basophils (%) (Auto) 0.3 Neutrophils # (Auto) 7.2 Lymphocytes # (Auto) 2.0 Monocytes # (Auto) 1.1 Eosinophils # (Auto) 0.0 Basophils # (Auto) 0.0 CBC Comment DIFF FINAL Differential Comment Blood Urea Nitrogen 6 Creatinine 0.95 Random Glucose 105 Total Protein 8.0 Albumin 3.5 Calcium Level 9.2 Alkaline Phosphatase 101 Aspartate Amino Transf (AST/SGOT) 32 Alanine Aminotransferase (ALT/SGPT) 20 Total Bilirubin 0.3 Sodium Level 142 Potassium Level 4.5 Chloride Level 107 Carbon Dioxide Level 26.3 Anion Gap 9 Estimat Glomerular Filtration Rate 84 Thyroid Stimulating Hormone 3rd Gen 0.849 Salicylates Level 2.8 Urine Opiates Screen NEG Acetaminophen Level LESS THAN 2.0 Urine Barbiturates Screen NEG Valproic Acid (Depakene) Level 73 Urine Amphetamines Screen NEG Urine Benzodiazepines Screen POS Urine Cocaine Screen NEG Urine Cannabinoids Screen POS Ethyl Alcohol Level LESS THAN 3 Diagnosis Primary Impression: Medical clearance for psychiatric admission Lovely Bojorquez May 06, 2017 16:39
[2017-05-06 19:02] VITALS: BP 129/77; PULSE 79; RESP 18; O2SAT 100
[2017-05-06] MEDS ORDERED: QUEtiapine FUMARATE 200 MG TAB PO ONE (23:00)
[2017-05-07 02:30] VITALS: BP 116/59; PULSE 72; RESP 16; O2SAT 96
[2017-05-07] MEDS ORDERED: ACETAMINOPHEN 325 MG TAB PO ONE (06:45)
--- NOTE | 2017-05-07 08:42 | HHI.HP ---
Provisional Diagnosis Admission Date May 07, 2017 at 08:38 Reading I. Bipolar disorder, alcohol and cannabis use Certification of Person's Competence To Provide Express and Informed Consent I have personally examined Mark Massey , a person being served at [facility] on, May 07, 2017 08:42. Express and informed consent means consent voluntarily given in writing, by a competent person, after sufficient explanation and disclosure of the subject matter involved to enable the person to make a knowing and willful decision without any element of force, fraud, deceit, duress, or other form of constraint or coercion. This person is 18 years of age or older, is not now known to be incompetent to consent to treatment with a guardian advocate, and does not have a health care surrogate or proxy currently making medical treatment decisions. I have found this person to be one of the following: [] Competent to provide express and informed consent, as defined above, for voluntary admission to this facility and is competent to provide express and informed consent for treatment. He/she has the consistent capacity to make well reasoned, willful, and knowing decisions concerning his or her medical or mental health treatment. The person fully and consistently understands the purpose of the admission for examination/placement and is fully capable of personally exercising all rights assured [place] [] Incompetent to provide express and informed consent to voluntary admission, and this is incompetent to provide express and informed consent to treatment. The person must be transferred to involuntary status and a petition for a guardian advocate filed with the Circuit Court. [] Refusing to provide express and informed consent to voluntary admission but is competent to provide express and informed consent for treatment. The person must be discharged or transferred to involuntary status. Form shall be completed within 24 hours of a person's arrival at the receiving facility and filed in the clinical record of each person: 1. Admitted on a voluntary basis 2. Permitted to provide express and informed consent to his/her own treatment 3. Allowed to transfer from involuntary to voluntary status 4. Prior to permitting a person to consent to his or her own treatment after having been previously found incompetent to consent to treatment. History of Present Illness Capacity: Has Capacity HPI The patient is a 51-year-old man, domiciled wit his mother, unemployed, single, supported by [facility], PPHx of bipolar disorder, alcohol,. cannabis and cocaine use disorder, mult hospitalizations, no SAs, last hospitalization was here in [place] in 2018, discharge on April 30, he was under the care of Dr. Gonzalez, documentation reviewed, outpatient care in [facility] , Seroquel 200 mg HS, Depakote 2000 mg at bedtime propranolol 10 tid for akathisia, trazodone 150 hs, no significant medical history, presents under Queen act initiated by the Police Department. According to his paperwork, "Mr. Tejeda made several calls to 911 in reference to people trying to hurt him. Mr. Tejeda is bipolar and has ingested several different medications. Upon arriving to [facility], it was revealed that he was hallucinating. His roommate was asleep and advised that Mr. Massey was on a drug and alcohol binge. " The patient reports that tonight he was upset at his roommate because his roommate drinks alcohol the time and he has to buy it for him. He reports that he gotten several arguments with his roommate tonmilo and this resulted in the patient calling 911 several times. The patient denies having any hallucinations. He denies ingesting any nonprescribed medications. He reports that tonight he took his typical prescribed doses of Seroquel, propranolol, gemfibrozil, simvastatin, lisinopril, prolixin. He did not ingest any additional doses. He admits to using marijuana today and he admits to drinking 1 beer at 3 PM yesterday at bike week. He denies any other substance use. He denies any suicidal or homicidal ideation. He has no medical complaints at this time. On psychiatric evaluation today the patient presents talkative, but redirectable. The patient reports being a good mood, he says that he feels much better today. The patient reports that since he was discharged he has been taking his medication as prescribed. His Depakote level is 73. The patient denies suicidal and homicidal ideation, he denies visual and auditory hallucinations. He is logical, he is coherent and relevant. At times he is disruptive, disrespectful with staff, patient has been allegedly making racist comments toward -Mac[place] staff in the ER. I discussed personally this case with Dr. Gonzalez, we have concluded that the patient is at baseline and he does not need psychiatric admission at this moment. He should continue his psychiatric care as an outpatient Review of Systems Constitutional: DENIES: Diaphoretic episodes, Fatigue, Fever, Weight gain, Weight loss, Chills, Dizziness, Change in appetite, Night Sweats Endocrine: DENIES: Heat/cold intolerance, Polydipsia, Polyuria, Polyphagia Eyes: DENIES: Blurred vision, Diplopia, Eye inflammation, Eye pain, Vision loss , Photosensitivity, Double Vision Ears, nose, mouth, throat: DENIES: Tinnitus, Hearing loss, Vertigo, Nasal discharge, Oral lesions, Throat pain, Hoarseness, Ear Pain, Running Nose, Epistaxis, Sinus Pain, Toothache, Odynophagia Respiratory: DENIES: Apneas, Cough, Snoring, Wheezing, Hemoptysis, Sputum production, Shortness of breath Cardiovascular: DENIES: Chest pain, Palpitations, Syncope, Dyspnea on Exertion , PND, Lower Extremity Edema, Orthopnea, Claudication Gastrointestinal: DENIES: Abdominal pain, Black stools, Bloody stools, Constipation, Diarrhea, Nausea, Vomiting, Difficulty Swallowing, Anorexia Genitourinary: DENIES: Sexual dysfunction, Urinary frequency, Urinary incontinence, Urgency, Hematuria, Dysuria, Nocturia, Penile Discharge, Testicular Pain, Testicular Swelling Integumentary: DENIES: Abnormal pigmentation, Nail changes, Pruritus, Rash Hematologic/lymphatic: DENIES: Bruising, Lymphadenopathy Immunologic/allergic: DENIES: Eczema, Urticaria Neurologic: DENIES: Abnormal gait, Headache, Localized weakness, Paresthesias, Seizures, Speech Problems, Tremor, Poor Balance Psychiatric: DENIES: Anxiety, Confusion, Mood changes, Depression, Hallucinations, Agitation, Suicidal Ideation, Homicidal Ideation, Delusions Substance Abuse History Drugs/Alcohol past 12 months Patient reports that daily use of marijuana Past Family Social History Coded Allergies: No Known Allergies (Verified Allergy, Unknown, 05/06/17) Per pt. Active Scripts Fluphenazine (Fluphenazine) 5 Mg Tab, 5 MG PO BID for Psychosis for 14 Days, # 28 TAB Prov:Lovely Bojorquez 04/30/17 Divalproex ER (Depakote ER) 500 Mg Adilia, 2000 MG PO DAILY for health for 14 Days, #56 TAB Prov:Lovely Bojorquez 04/30/17 Trihexyphenidyl (Trihexyphenidyl) 2 Mg Tab, 2 MG PO BID for health for 30 Days, #60 TAB 0 Refills Prov:Lovely Bojorquez [employer] 04/30/17 Reported Medications Quetiapine (Seroquel) 200 Mg Tab, 200 MG PO HS, #30 TAB 0 Refills 05/06/17 Gemfibrozil (Lopid) 600 Mg Tab, 600 MG PO BIDAC, #60 TAB 0 Refills Take 30 minutes prior to breakfast and dinner 05/06/17 Simvastatin (Simvastatin) 40 Mg Tab, 40 MG PO HS for Cholesterol Management, # 30 TAB 0 Refills 05/06/17 Lisinopril (Lisinopril) 40 Mg Tab, 40 MG PO DAILY for Blood Pressure Management , #30 TAB 0 Refills 05/06/17 Propranolol (Propranolol) 40 Mg Tab, 40 MG PO Q12HR, #60 TAB 0 Refills 04/19/17 Discontinued Reported Medications Ziprasidone (Geodon) 40 Mg Cap, 40 MG PO BID, #60 CAP 0 Refills 04/19/17 Trazodone (Trazodone) 50 Mg Tab, 50 MG PO HS for Control Depression, #30 TAB 0 Refills 04/19/17 Quetiapine (Seroquel) 200 Mg Tab, 200 MG PO HS, #30 TAB 0 Refills 04/19/17 Discontinued Scripts Diphenhydramine HCl (Diphenhydramine HCl) 50 Mg Cap, 50 MG PO Q6H Y for EPS or sleep for 14 Days, #56 CAP Prov:Lovely Bojorquez [facility] 04/30/17 Current Medications Medications (Trade) Dose Ordered Sig/Kerline Route Start Time Stop Time Status Last Admin (Depakote Er) 2,000 mg DAILY PO 05/07/17 09:00 UNV (Lopid) 600 mg BIDAC PO 05/07/17 08:45 UNV (Inderal) 40 mg Q12HR PO 05/07/17 09:00 UNV (SEROquel) 200 mg HS PO 05/07/17 21:00 UNV Non-Formulary Medication 40 mg DAILY PO 05/07/17 09:00 UNV Non-Formulary Medication 40 mg HS PO 05/07/17 21:00 UNV (Ativan) 1 mg Q6H PRN PO 05/07/17 08:45 UNV (Ativan Inj) 1 mg Q6H PRN IM 05/07/17 08:45 UNV (Ativan) 0.5 mg Q12H PRN PO 05/07/17 08:45 UNV (Ativan Inj) 0.5 mg Q12H PRN IM 05/07/17 08:45 UNV (Tylenol) 650 mg Q4H PRN PO 05/07/17 08:45 UNV (Milk Of Magnesia Liq) 30 ml DAILY PRN PO 05/07/17 08:45 UNV (Mag-Al Plus Susp Liq) 30 ml Q6H PRN PO 05/07/17 08:45 UNV (Habitrol 21 Mg Patch.24 Hr) 1 patch DAILY T-DERMAL 05/07/17 09:00 UNV Social History He was born in [place], he lives with his mother in [place], unemployed, on SSI, single, [employer] education Physical Exam Vital Signs Vital Signs Date Time Temp Pulse Resp B/P (MAP) Pulse Ox O2 Delivery O2 Flow Rate FiO2 05/07/17 02:30 72 16 116/59 (78) 96 Room Air 05/06/17 06:21 98.6 Mental Status Examination Appearance: Appropriate Consciousness: Alert Orientation: x4 Motor Activity: Normal gait Speech: Unremarkable Language: Adequate Fund of Knowledge: Adequate Attention and Concentration: Adequate Memory: Unremarkable Mood: Appropriate Affect: Appropriate Thought Process & Associations: Intact Thought Content: Appropriate Hallucination Type: None Delusion Type: None Suicidal Ideation: No Suicidal Plan: No Suicidal Intention: No Homicidal Ideation: No Homicidal Plan: No Homicidal Intention: No Insight: Adequate Judgment: Adequate Assessment & Plan Problem List: (1) Bipolar disorder ICD Codes: F31.9 - Bipolar disorder, unspecified Status: Acute Assessment & Plan: On psychiatric evaluation the patient is at baseline, he does not present any acute psychiatric symptoms require an immediate psychiatric intervention. Patient shows that he is compliant with his psychotropics, Depakote level is 73. Patient does not meet criteria for involuntary psychiatric admission at this moment. He should continue his psychiatric care as an outpatient in [facility]. Aggressive behavior displayed at home , as well as disrespectful statements, and racist comments in the ER are most probably part of patient's character and personality and not secondary to his primary psychiatric conditions. Queen act will be lifted. Assessment & Plan Estimated LOS: Devon Bolanos MD May 07, 2017 08:42
[2017-05-07] MEDS ORDERED: LORazepam 1 MG TAB PO PRN (08:45)
[2017-05-07] MEDS ORDERED: LORazepam 2 MG/ML VIAL IM PRN ×2 (08:45)
[2017-05-07] MEDS ORDERED: MAGNESIUM HYDROXIDE SUSP 30 ML CUP PO PRN (08:45)
[2017-05-07] MEDS ORDERED: ACETAMINOPHEN 325 MG TAB PO PRN (08:45)
[2017-05-07] MEDS ORDERED: ALUMINUM/MAGNESIUM/SIMETH 30 ML CUP PO PRN (08:45)
[2017-05-07] MEDS ORDERED: LORazepam 0.5 MG TAB PO PRN (08:45)
[2017-05-07] MEDS ORDERED: GEMFIBROZIL 600 MG TAB PO SCH (08:45)
[2017-05-07] MEDS ORDERED: PROPRANOLOL HCL 40 MG TAB PO SCH (09:00)
[2017-05-07] MEDS ORDERED: NICOTINE 21 MG/24 HR PATCH T-DERMAL SCH (09:00)
[2017-05-07] MEDS ORDERED: DIVALPROEX SODIUM E.R. 500 MG TAB PO SCH (09:00)
[2017-05-07] MEDS ORDERED: LISINOPRIL 20 MG TAB PO SCH (09:00)
[2017-05-07 10:10] VITALS: BP 133/71; PULSE 84; RESP 20
--- NOTE | 2017-05-07 10:51 | PD ---
Physical Exam Date Seen by Provider: May 07, 2017 Time Seen by Provider: 10:50 Narrative 51-year-old male previously medically cleared for psychiatric evaluation under the Queen act, has been evaluated by Dr. Maldonado the psychiatrist, and determined to be psychiatrically stable for discharge at this time. Patient remains medically stable for discharge at this time. Follow-up will be based on Dr. Maldonado's note. Data Data Last Documented VS Vital Signs Date Time Temp Pulse Resp B/P (MAP) Pulse Ox O2 Delivery O2 Flow Rate FiO2 05/07/17 02:30 72 16 116/59 (78) 96 Room Air 05/06/17 06:21 98.6 Orders Orders Complete Blood Count With Diff (05/06/17 03:13) Comprehensive Metabolic Panel (05/06/17 03:13) Thyroid Stimulating Hormone (05/06/17 03:13) Psych Screen (05/06/17 03:13) Drug Screen, Random Urine (05/06/17 03:13) Alcohol (Ethanol) (05/06/17 03:13) Salicylates (Aspirin) (05/06/17 03:38) Tylenol (Acetaminophen) (05/06/17 03:30) Diet Regular Basic (05/06/17 Breakfast) Diet Regular Basic (05/06/17 Lunch) Propranolol (Inderal) (05/06/17 12:30) Divalproex Er (Depakote Er) (05/06/17 12:30) Fluphenazine (Prolixin) (05/06/17 12:30) Trihexyphenidyl (Artane) (05/06/17 12:30) Valproic Acid (Depakene) (05/06/17 13:05) Gemfibrozil (Lopid) (05/06/17 14:15) Lisinopril (Prinivil) (05/06/17 14:15) Diet Regular Basic (05/06/17 Dinner) Quetiapine (Seroquel) (05/06/17 23:00) Diet Regular Basic (05/07/17 Breakfast) Acetaminophen (Tylenol) (05/07/17 06:45) Divalproex Er (Depakote Er) (05/07/17 09:00) Gemfibrozil (Lopid) (05/07/17 08:45) Propranolol (Inderal) (05/07/17 09:00) Quetiapine (Seroquel) (05/07/17 21:00) Lisinopril (Prinivil) (05/07/17 09:00) Pravastatin (Pravachol) (05/07/17 21:00) Admit To Inpatient Psych (05/07/17 ) Vital Signs (Adult) [id number].Q12H.E (05/07/17 08:37) Activity Oob Ad Xiomy (05/07/17 08:37) Lorazepam (Ativan) (05/07/17 08:45) Lorazepam Inj (Ativan Inj) (05/07/17 08:45) Lorazepam (Ativan) (05/07/17 08:45) Lorazepam Inj (Ativan Inj) (05/07/17 08:45) Acetaminophen (Tylenol) (05/07/17 08:45) Magnesium Hydroxide Liq (Milk Of Magnesi (05/07/17 08:45) Al-Mag Hy-Si 40-40-4 Mg/Ml Liq (Mag-Al P (05/07/17 08:45) Nicotine 21 Mg Patch.24 Hr (Habitrol 21 (05/07/17 09:00) Basic Metabolic Panel (Bmp) (05/08/17 06:00) Lipid Profile (05/08/17 06:00) Hemoglobin (Hgb) A1c (05/08/17 06:00) Labs Laboratory Tests Test 05/06/17 03:30 White Blood Count 10.3 TH/MM3 Red Blood Count 4.09 MIL/MM3 Hemoglobin 13.0 GM/DL Hematocrit 38.7 % Mean Corpuscular Volume 94.7 FL Mean Corpuscular Hemoglobin 31.9 PG Mean Corpuscular Hemoglobin Concent 33.6 % Red Cell Distribution Width 14.5 % Platelet Count 289 TH/MM3 Mean Platelet Volume 8.5 FL Neutrophils (%) (Auto) 69.9 % Lymphocytes (%) (Auto) 19.0 % Monocytes (%) (Auto) 10.5 % Eosinophils (%) (Auto) 0.3 % Basophils (%) (Auto) 0.3 % Neutrophils # (Auto) 7.2 TH/MM3 Lymphocytes # (Auto) 2.0 TH/MM3 Monocytes # (Auto) 1.1 TH/MM3 Eosinophils # (Auto) 0.0 TH/MM3 Basophils # (Auto) 0.0 TH/MM3 CBC Comment DIFF FINAL Differential Comment Blood Urea Nitrogen 6 MG/DL Creatinine 0.95 MG/DL Random Glucose 105 MG/DL Total Protein 8.0 GM/DL Albumin 3.5 GM/DL Calcium Level 9.2 MG/DL Alkaline Phosphatase 101 U/L Aspartate Amino Transf (AST/SGOT) 32 U/L Alanine Aminotransferase (ALT/SGPT) 20 U/L Total Bilirubin 0.3 MG/DL Sodium Level 142 MEQ/L Potassium Level 4.5 MEQ/L Chloride Level 107 MEQ/L Carbon Dioxide Level 26.3 MEQ/L Anion Gap 9 MEQ/L Estimat Glomerular Filtration Rate 84 ML/MIN Thyroid Stimulating Hormone 3rd Gen 0.849 uIU/ML Salicylates Level 2.8 MG/DL Urine Opiates Screen NEG Acetaminophen Level LESS THAN 2.0 MCG/ML Urine Barbiturates Screen NEG Valproic Acid (Depakene) Level 73 MCG/ML Urine Amphetamines Screen NEG Urine Benzodiazepines Screen POS Urine Cocaine Screen NEG Urine Cannabinoids Screen POS Ethyl Alcohol Level LESS THAN 3 MG/DL MDM Medical Record Reviewed: Yes Supervised Visit with JAROCHO: Yes Narrative Course 51-year-old male previously medically cleared for psychiatric evaluation under the [employer] act, has been evaluated by Dr. Maldonado the psychiatrist, and determined to be psychiatrically stable for discharge at this time. Patient remains medically stable for discharge at this time. Follow-up will be based on Dr. Maldonado's note. Diagnosis Primary Impression: Medical clearance for psychiatric admission Patient Instructions: General Instructions Additional Instruction: 51-year-old male previously medically cleared for psychiatric evaluation under the [employer] act, has been evaluated by Dr. Maldonado the psychiatrist, and determined to be psychiatrically stable for discharge at this time. Patient remains medically stable for discharge at this time. Follow-up will be based on Dr. Maldonado's note. Disposition: 01 DISCHARGE HOME Condition: Stable Garrett Peña May 07, 2017 10:51
[2017-05-07] MEDS ORDERED: REMOVE OLD NICODERM (NICOTINE) PATCH T-DERMAL SCH (21:00)
[2017-05-07] MEDS ORDERED: QUEtiapine FUMARATE 200 MG TAB PO SCH (21:00)
[2017-05-07] MEDS ORDERED: PRAVASTATIN SOD 80 MG TAB PO SCH (21:00)
== END 2017-05-07 11:10 | disposition home or self-care (01) | DRG 885 ==
LOC: NEPD 03:07 → NEDA 05-07 08:38
PROVIDERS: ADMIT Psychiatry & Neurology Psychiatry; ATTEND Psychiatry & Neurology Psychiatry
DX: F31.9 Bipolar disorder, unspecified (principal); F12.90 Cannabis use, unspecified, uncomplicated; Z72.0 Tobacco use
CPT/HCPCS: 80053; 80164; 80307; 84443; 85025

== ENCOUNTER 2017-06-05 19:06 | Emergency (ER) | payer OTHER ==
[~2017-06-05] VITALS: Ht 172.7 cm; Wt 90.0 kg
[~2017-06-05 19:06] MED LIST changes: -DIPH50CA PO; +GEMF600 PO; +LISI40TA PO; +SERO200T PO; +SIMV40TA PO
[2017-06-05 19:18] VITALS: BP 143/96; PULSE 88; RESP 16; TEMP 98.5; O2SAT 97
--- NOTE | 2017-06-05 20:10 | PD ---
HPI Chief Complaint: Psychiatric Symptoms Time Seen by Provider: 19:38 Travel History International Travel<30 days: No Contact w/Intl Traveler<30days: No Traveled to known affect area: No History of Present Illness HPI 52-year-old white male presents emergency department under a [place] act by PD. PD had responded to the home due to loud noise. The patient had apparently broken a plate on the ground in the house seemed to be disheveled. The patient was refusing to care for himself. He had not taken his medications in the last 1-2 days. The patient was recently treated at [facility] as well as [facility]. He denies any active suicidal ideation. No homicidal ideation. No toxic ingestions. He does admit to drinking alcohol. He denies any drugs. He does smoke cigarettes. He denies any medical complaints. He does report occasional cough from tobacco. No fever chills. No vomiting. No abdominal pain. No urinary symptoms. PFSH Past Medical History Narrative Medical Bipolar, anxiety, hypertension, hypercholesterolemia, chronic back pain Bipolar Disorder: Yes Anxiety: Yes Depression: No Cancer: No Cardiovascular Problems: No Diabetes: No Diminished Hearing: No Endocrine: No Genitourinary: No Headaches: No Hepatitis: Yes Hypertension: Yes Immune Disorder: No Musculoskeletal: No Neurologic: No Psychiatric: Yes (Schizoaffective Disorder) Reproductive: No Respiratory: No Immunizations Current: Yes Seizures: No Tetanus Vaccination: Unknown Past Surgical History Abdominal Surgery: Yes (APPENDECTOMY 1992) Appendectomy: Yes (1992) Neurologic Surgery: Yes (LASER SURGERY BACK) Tonsillectomy: Yes (1994) Other Surgery: Yes (NOSE REPAIR) Social History Alcohol Use: Yes (occasionally) Tobacco Use: Yes (cloves (4) packs a day) Substance Use: Yes Allergies-Medications (Allergen,Severity, Reaction): Coded Allergies: No Known Allergies (Verified Allergy, Unknown, 05/06/17) Per pt. Reported Meds & Prescriptions Reported Meds & Active Scripts Active Fluphenazine (Fluphenazine HCl) 5 Mg Tab 5 Mg PO BID 14 Days Depakote ER (Divalproex Sodium) 500 Mg Adilia 2,000 Mg PO DAILY 14 Days Trihexyphenidyl (Trihexyphenidyl HCl) 2 Mg Tab 2 Mg PO BID 30 Days Reported Seroquel (Quetiapine Fumarate) 200 Mg Tab 200 Mg PO HS Lopid (Gemfibrozil) 600 Mg Tab 600 Mg PO BIDAC Take 30 minutes prior to breakfast and dinner Simvastatin 40 Mg Tab 40 Mg PO HS Lisinopril 40 Mg Tab 40 Mg PO DAILY Propranolol (Propranolol HCl) 40 Mg Tab 40 Mg PO Q12HR Review of Systems General / Constitutional: No: Fever Eyes: No: Visual changes HENT: No: Headaches Cardiovascular: No: Chest Pain or Discomfort Respiratory: Positive: Cough, No: Shortness of Breath Gastrointestinal: No: Abdominal Pain Genitourinary: No: Dysuria Musculoskeletal: Positive: Arthralgias (Chronic back pain), Pain Skin: No Rash Neurologic: No: Weakness Psychiatric: Positive: Mood Disorder, No: Anxiety, Depression, Suicidal Ideations, Disorder of Thought, Substance Abuse, Homicidal Ideation Endocrine: No: Polydipsia Hematologic/Lymphatic: No: Easy Bruising Physical Exam Narrative GENERAL: Well-nourished, well-developed patient. SKIN: Warm and dry. HEAD: Normocephalic and atraumatic. EYES: No scleral icterus. No injection or drainage. ENT: No nasal drainage noted. Mucous membranes pink. Airway patent. NECK: Supple, trachea midline. Moves head freely without obvious discomfort. CARDIOVASCULAR: Regular rate and rhythm without murmurs, gallops, or rubs. RESPIRATORY: Breath sounds equal bilaterally. No accessory muscle use. GASTROINTESTINAL: Abdomen soft, non-tender, nondistended. EXTREMITIES: No cyanosis or edema. BACK: Nontender without obvious deformity. No CVA tenderness. NEURO: Patient is alert and oriented. no sensorimotor deficits. Nonfocal. Normal speech. PSYCH: No delusions. No auditory or visual hallucinations. Data Data Last Documented VS Vital Signs Date Time Temp Pulse Resp B/P (MAP) Pulse Ox O2 Delivery O2 Flow Rate FiO2 06/05/17 19:18 98.5 88 16 143/96 (112) 97 Orders Orders Complete Blood Count With Diff (06/05/17 19:33) Comprehensive Metabolic Panel (06/05/17 19:33) Thyroid Stimulating Hormone (06/05/17 19:33) Valproic Acid (Depakene) (06/05/17 19:33) Psych Screen (06/05/17 19:33) Drug Screen, Random Urine (06/05/17 19:33) Alcohol (Ethanol) (06/05/17 19:33) Salicylates (Aspirin) (06/05/17 19:33) Tylenol (Acetaminophen) (06/05/17 19:33) MDM Medical Decision Making Medical Screen Exam Complete: Yes Emergency Medical Condition: Yes Medical Record Reviewed: Yes Differential Diagnosis MDM: High Differential diagnoses: Schizophrenia, schizoaffective disorder, bipolar, anxiety, depression, adjustment reaction, mood disorder NOS, ODD, depressive disorder NOS, psychosis NOS, substance induced mood disorder, infection, electrolyte abnormality, malingering. Narrative Course Mental health screening discussed with the patient. Psychiatric screen ordered. The patient is requesting his lisinopril. He reports 40 mg daily. His blood pressure is only mildly elevated. Will give him 10 mg of lisinopril p.o. He is also requesting opiates for his chronic back pain. At this point we will hold off. He has been noncompliant with the rest of his medicines. His been drinking alcohol. Diagnosis Primary Impression: Medical clearance for psychiatric admission Additional Impression: Antisocial personality traits Condition: Stable Sarmad Farrar Jun 05, 2017 20:10
[2017-06-05] MEDS ORDERED: LISINOPRIL 10 MG TAB PO ONE (20:15)
[2017-06-05 20:27] LABS: AUTOMATED NEUTROPHIL # 9.8 TH/MM3 (1.8-7.7); BASOPHIL # 0.1 TH/MM3 (0-0.2); BASOPHIL % 0.6 % (0.0-2.0); EOSINOPHIL # 0.1 TH/MM3 (0-0.4); EOSINOPHIL % 0.6 % (0.0-4.0); HEMATOCRIT 38.7 % (39.0-51.0); HEMOGLOBIN 12.9 GM/DL (13.0-17.0); LYMPH % 17.3 % (9.0-44.0); LYMPHOCYTE # 2.3 TH/MM3 (1.0-4.8); MEAN CELL VOLUME 95.2 FL (80.0-100.0); MEAN CORPUSCULAR HEMOGLOBIN 31.6 PG (27.0-34.0); MEAN CORPUSCULAR HGB CONC 33.2 % (32.0-36.0); MEAN PLATELET VOLUME 7.8 FL (7.0-11.0); MONO % 7.8 % (0.0-8.0); NEUT % 73.7 % (16.0-70.0); PLATELET COUNT 351 TH/MM3 (150-450); RED BLOOD COUNT 4.07 MIL/MM3 (4.50-5.90); RED CELL DISTRIBUTION WIDTH 14.3 % (11.6-17.2); WHITE BLOOD COUNT 13.3 TH/MM3 (4.0-11.0)
[2017-06-05 21:00] LABS: ACETAMINOPHEN LESS THAN 2.0 MCG/ML (10.0-30.0); ALBUMIN 3.8 GM/DL (3.4-5.0); ALKALINE PHOSPHATASE 96 U/L (45-117); ALT (GPT) 22 U/L (12-78); AST (GOT) 33 U/L (15-37); BICARBONATE 24.4 MEQ/L (21.0-32.0); BLOOD UREA NITROGEN 11 MG/DL (7-18); CALCIUM 9.2 MG/DL (8.5-10.1); CHLORIDE 111 MEQ/L (98-107); CREATININE 0.93 MG/DL (0.60-1.30); GLOMERULAR FILTRATION RATE 85 ML/MIN (>89); GLUCOSE,RANDOM 103 MG/DL (74-106); SODIUM (NA) 145 MEQ/L (136-145); TOTAL BILIRUBIN ADULT 0.3 MG/DL (0.2-1.0); TOTAL PROTEIN 8.4 GM/DL (6.4-8.2)
[2017-06-05 22:00] VITALS: BP 146/79; PULSE 84; RESP 18; TEMP 98.6; O2SAT 99
[2017-06-05] MEDS ORDERED: HALOPERIDOL LACTATE 5 MG/ML AMP ONE (22:41)
[2017-06-05] MEDS ORDERED: diphenhydrAMINE HCL 50 MG/ML VIAL ONE (22:41)
[2017-06-05] MEDS ORDERED: LORazepam 2 MG/ML VIAL ONE (22:42)
[2017-06-05] MEDS ORDERED: HALOPERIDOL LACTATE 5 MG/ML AMP IM ONE (23:00)
[2017-06-05] MEDS ORDERED: diphenhydrAMINE HCL 50 MG/ML VIAL IM ONE (23:00)
[2017-06-05] MEDS ORDERED: LORazepam 2 MG/ML VIAL IM ONE (23:00)
[2017-06-06 06:21] VITALS: BP 145/90; PULSE 84; RESP 16; TEMP 98.6; O2SAT 99
[2017-06-06] MEDS ORDERED: IBUPROFEN 800 MG TAB PO ONE (09:15)
--- NOTE | 2017-06-06 11:53 | PD ---
History of Present Illness Chief Complaint: Psychiatric Symptoms Time Seen by Provider: 11:40 Travel History International Travel<30 Days: No Contact w/Intl Traveler<30days: No Known affected area: No Legal Status Legal Status: Queen Act Queen Act Signed By: Vernell Shen History of Present Illness: History of Present Illness HPI 52-year-old white, single male, with history of bipolar disorder, substance use disorder, who presents emergency department under a [place] act by PD initiated by law enforcement. The police affidavit alleges that the patient has been a continuous problem in his neighborhood. After multiple attempts of trying to help him Mark refused and he was continuously yelling and continued to talk over the officer. He notes that he broke a glass plate on the ground during the encounter. The patient reports that a neighbor called the police because he was playing his music very loudly and when the police came he admits to having thrown a plate on the ground because he was upset with his brother. The patient upon arrival to the ED was allowed, demanding, described as manic and not able to follow redirection. He received ETO of Haldol, Ativan and Benadryl. This morning he has maintained behavioral control. Electronic medical record is reviewed. The patient was last admitted to our inpatient psychiatric unit in April of this year. Current toxicology is positive for benzos as well as cannabinoids. When questioned about the benzos he tells me that he takes Valium which is prescribed to his mother. The patient is seen in [place], fitness club manager is present during the evaluation. The patient is alert, oriented, dressed in hospital gown and maintaining basic hygiene. He is mildly hypomanic. He tends to speak in a continuous, making no pauses, over inclusive fashion, difficult to interrupt at times but is able to focus and complete evaluation. He admits to playing his music very loud and that yesterday was not any different. He also admits to not having taken his medications for 2-3 days because it was his birthday and he did not want to be sleeping. The patient does not appear to be responding to internal stimuli. Denies any hallucinations, delusions or paranoia. He denies any suicidal or homicidal ideation, intent or plan. He does state that he is angry with his neighbor who keeps calling the police on him but he goes on to state that he would never harm him or harm anyone else. He also tells me that he has not had cocaine in the past several months and that he is only smoking marijuana now. In terms of psychiatric follow-up the patient is being followed at [facility] and has seen Garcia. He tells is that he will be a part of case management and that he will have contact via telephone with [facility] 3 times a week. He has medications at home and states that he will take his medication as soon as he gets home. PFSH Past Medical History Bipolar Disorder: Yes Anxiety: Yes Depression: No Cancer: No Cardiovascular Problems: No Diabetes: No Diminished Hearing: No Endocrine: No Genitourinary: No Headaches: No Hepatitis: Yes Hypertension: Yes Immune Disorder: No Musculoskeletal: No Neurologic: No Psychiatric: Yes (Schizoaffective Disorder) Reproductive: No Respiratory: No Immunizations Current: Yes Seizures: No Tetanus Vaccination: Unknown Past Surgical History Abdominal Surgery: Yes (APPENDECTOMY 1992) Appendectomy: Yes (1992) Neurologic Surgery: Yes (LASER SURGERY BACK) Tonsillectomy: Yes (1994) Other Surgery: Yes (NOSE REPAIR) Psychiatric History Psychiatric History Hx Psychiatric Treatment: BIPOLAR, ADHD, ANXIETY History of Inpatient Treatment: Yes (Last hospitalization [facility] [place]) Guns or firearms in home: No Social History Single, never , on disability, lives with his mother and his brother. Hx Alcohol Use: Yes (occasionally) Hx Tobacco Use: Yes (cloves (4) packs a day) Hx Substance Use: Yes Substance Use Type: Alcohol, Crack, Marijuana, Cocaine Other Substances Used: Patient claims he has not used cocaine in several months. Hx of Substance Use Treatment: Yes Allergies-Medications (Allergen,Severity, Reaction): Coded Allergies: No Known Allergies (Verified Allergy, Unknown, 05/06/17) Per pt. Reported Meds & Prescriptions Reported Meds & Active Scripts Active Fluphenazine (Fluphenazine HCl) 5 Mg Tab 5 Mg PO BID 14 Days Depakote ER (Divalproex Sodium) 500 Mg Adilia 2,000 Mg PO DAILY 14 Days Trihexyphenidyl (Trihexyphenidyl HCl) 2 Mg Tab 2 Mg PO BID 30 Days Reported Seroquel (Quetiapine Fumarate) 200 Mg Tab 200 Mg PO HS Lopid (Gemfibrozil) 600 Mg Tab 600 Mg PO BIDAC Take 30 minutes prior to breakfast and dinner Simvastatin 40 Mg Tab 40 Mg PO HS Lisinopril 40 Mg Tab 40 Mg PO DAILY Propranolol (Propranolol HCl) 40 Mg Tab 40 Mg PO Q12HR Review of Systems Psychiatric: COMPLAINS OF: Mood changes Except as stated in HPI: all other systems reviewed are Neg Mental Status Examination Appearance: Appropriate (In hospital gown) Consciousness: Alert Orientation: x4 Motor Activity: Normal gait Speech: Rapid Language: Adequate Fund of Knowledge: Adequate Attention and Concentration: Adequate Memory: Unremarkable Mood: Appropriate Affect: Appropriate Thought Process & Associations: Intact, Logical Thought Content: Appropriate Hallucination Type: None Delusion Type: None Suicidal Ideation: No Suicidal Plan: No Suicidal Intention: No Homicidal Ideation: No Homicidal Plan: No Homicidal Intention: No Insight: Poor Judgment: Impulsive MDM Medical Decision Making Medical Record Reviewed: Yes Assessment/Plan 52-year-old white, single male, with history of bipolar disorder, substance use disorder, who presents emergency department under a [place] act by PD initiated by law enforcement. The police affidavit alleges that the patient has been a continuous problem in his neighborhood. After multiple attempts of trying to help him Mark refused and he was continuously yelling and continued to talk over the officer. He notes that he broke a glass plate on the ground during the encounter. Upon arrival to [facility] the patient was loud and demanding, not following redirection and required ETO. This morning the patient has not presented any agitation or restlessness. He is not psychotic and is not suicidal or homicidal. He wants to be discharged and to return to his home. He does not meet criteria for the Queen act at this time. It is strongly suggested that he reinitiate his psychiatric medication once he gets home. He will follow up with [facility] services The BA is lifted. Orders Orders Complete Blood Count With Diff (06/05/17 19:33) Comprehensive Metabolic Panel (06/05/17 19:33) Thyroid Stimulating Hormone (06/05/17 19:33) Valproic Acid (Depakene) (06/05/17 19:33) Psych Screen (06/05/17 19:33) Drug Screen, Random Urine (06/05/17 19:33) Alcohol (Ethanol) (06/05/17 19:33) Salicylates (Aspirin) (06/05/17 19:33) Tylenol (Acetaminophen) (06/05/17 19:33) Lisinopril (Prinivil) (06/05/17 20:15) Diphenhydramine Inj (Benadryl Inj) (06/05/17 22:41) Haloperidol Inj (Haldol Inj) (06/05/17 22:41) Lorazepam Inj (Ativan Inj) (06/05/17 22:42) Haloperidol Inj (Haldol Inj) (06/05/17 23:00) Lorazepam Inj (Ativan Inj) (06/05/17 23:00) Diphenhydramine Inj (Benadryl Inj) (06/05/17 23:00) Diet Regular Basic (06/06/17 Breakfast) Ibuprofen (Motrin) (06/06/17 09:15) Diet Regular Basic (06/06/17 Lunch) Results Vital Signs Date Time Temp Pulse Resp B/P (MAP) Pulse Ox O2 Delivery O2 Flow Rate FiO2 06/06/17 06:21 98.6 84 16 145/90 (108) 99 06/05/17 22:00 98.6 84 18 146/79 (101) 99 Nasal Cannula 06/05/17 19:18 98.5 88 16 143/96 (112) 97 Laboratory Tests Test 06/05/17 19:30 White Blood Count 13.3 Red Blood Count 4.07 Hemoglobin 12.9 Hematocrit 38.7 Mean Corpuscular Volume 95.2 Mean Corpuscular Hemoglobin 31.6 Mean Corpuscular Hemoglobin Concent 33.2 Red Cell Distribution Width 14.3 Platelet Count 351 Mean Platelet Volume 7.8 Neutrophils (%) (Auto) 73.7 Lymphocytes (%) (Auto) 17.3 Monocytes (%) (Auto) 7.8 Eosinophils (%) (Auto) 0.6 Basophils (%) (Auto) 0.6 Neutrophils # (Auto) 9.8 Lymphocytes # (Auto) 2.3 Monocytes # (Auto) 1.0 Eosinophils # (Auto) 0.1 Basophils # (Auto) 0.1 CBC Comment DIFF FINAL Differential Comment Blood Urea Nitrogen 11 Creatinine 0.93 Random Glucose 103 Total Protein 8.4 Albumin 3.8 Calcium Level 9.2 Alkaline Phosphatase 96 Aspartate Amino Transf (AST/SGOT) 33 Alanine Aminotransferase (ALT/SGPT) 22 Total Bilirubin 0.3 Sodium Level 145 Potassium Level 3.5 Chloride Level 111 Carbon Dioxide Level 24.4 Anion Gap 10 Estimat Glomerular Filtration Rate 85 Thyroid Stimulating Hormone 3rd Gen 2.490 Salicylates Level 2.7 Urine Opiates Screen NEG Acetaminophen Level LESS THAN 2.0 Urine Barbiturates Screen NEG Valproic Acid (Depakene) Level 7 Urine Amphetamines Screen NEG Urine Benzodiazepines Screen POS Urine Cocaine Screen NEG Urine Cannabinoids Screen POS Ethyl Alcohol Level LESS THAN 3 Diagnosis Primary Impression: Substance abuse Additional Impression: Schizoaffective disorder Psychiatrically Cleared: Yes Med/ Other Pt Specific Info: No Change to Meds Disposition: 01 DISCHARGE HOME Condition: Stable Problem Qualifiers Additional Impression: Schizoaffective disorder Qualified Codes: F25.0 - Schizoaffective disorder, bipolar type Cynthia Delarosa [facility] Jun 06, 2017 11:53
--- NOTE | 2017-06-06 12:16 | PD ---
Physical Exam Time Seen by Provider: 12:12 SPENCER Rose has evaluated patient, lifted the Queen act and cleared the patient for discharge. Data Data Last Documented VS Vital Signs Date Time Temp Pulse Resp B/P (MAP) Pulse Ox O2 Delivery O2 Flow Rate FiO2 06/06/17 06:21 98.6 84 16 145/90 (108) 99 06/05/17 22:00 Nasal Cannula Orders Orders Complete Blood Count With Diff (06/05/17 19:33) Comprehensive Metabolic Panel (06/05/17 19:33) Thyroid Stimulating Hormone (06/05/17 19:33) Valproic Acid (Depakene) (06/05/17 19:33) Psych Screen (06/05/17 19:33) Drug Screen, Random Urine (06/05/17 19:33) Alcohol (Ethanol) (06/05/17 19:33) Salicylates (Aspirin) (06/05/17 19:33) Tylenol (Acetaminophen) (06/05/17 19:33) Lisinopril (Prinivil) (06/05/17 20:15) Diphenhydramine Inj (Benadryl Inj) (06/05/17 22:41) Haloperidol Inj (Haldol Inj) (06/05/17 22:41) Lorazepam Inj (Ativan Inj) (06/05/17 22:42) Haloperidol Inj (Haldol Inj) (06/05/17 23:00) Lorazepam Inj (Ativan Inj) (06/05/17 23:00) Diphenhydramine Inj (Benadryl Inj) (06/05/17 23:00) Diet Regular Basic (06/06/17 Breakfast) Ibuprofen (Motrin) (06/06/17 09:15) Diet Regular Basic (06/06/17 Lunch) Labs Laboratory Tests Test 06/05/17 19:30 White Blood Count 13.3 TH/MM3 Red Blood Count 4.07 MIL/MM3 Hemoglobin 12.9 GM/DL Hematocrit 38.7 % Mean Corpuscular Volume 95.2 FL Mean Corpuscular Hemoglobin 31.6 PG Mean Corpuscular Hemoglobin Concent 33.2 % Red Cell Distribution Width 14.3 % Platelet Count 351 TH/MM3 Mean Platelet Volume 7.8 FL Neutrophils (%) (Auto) 73.7 % Lymphocytes (%) (Auto) 17.3 % Monocytes (%) (Auto) 7.8 % Eosinophils (%) (Auto) 0.6 % Basophils (%) (Auto) 0.6 % Neutrophils # (Auto) 9.8 TH/MM3 Lymphocytes # (Auto) 2.3 TH/MM3 Monocytes # (Auto) 1.0 TH/MM3 Eosinophils # (Auto) 0.1 TH/MM3 Basophils # (Auto) 0.1 TH/MM3 CBC Comment DIFF FINAL Differential Comment Blood Urea Nitrogen 11 MG/DL Creatinine 0.93 MG/DL Random Glucose 103 MG/DL Total Protein 8.4 GM/DL Albumin 3.8 GM/DL Calcium Level 9.2 MG/DL Alkaline Phosphatase 96 U/L Aspartate Amino Transf (AST/SGOT) 33 U/L Alanine Aminotransferase (ALT/SGPT) 22 U/L Total Bilirubin 0.3 MG/DL Sodium Level 145 MEQ/L Potassium Level 3.5 MEQ/L Chloride Level 111 MEQ/L Carbon Dioxide Level 24.4 MEQ/L Anion Gap 10 MEQ/L Estimat Glomerular Filtration Rate 85 ML/MIN Thyroid Stimulating Hormone 3rd Gen 2.490 uIU/ML Salicylates Level 2.7 MG/DL Urine Opiates Screen NEG Acetaminophen Level LESS THAN 2.0 MCG/ML Urine Barbiturates Screen NEG Valproic Acid (Depakene) Level 7 MCG/ML Urine Amphetamines Screen NEG Urine Benzodiazepines Screen POS Urine Cocaine Screen NEG Urine Cannabinoids Screen POS Ethyl Alcohol Level LESS THAN 3 MG/DL MDM Supervised Visit with JAROCHO: No Narrative Course SPENCER Marie has evaluated patient, lifted the Queen act and cleared the patient for discharge. Patient contracts safety. Denies suicidal or homicidal ideations. Patient will be provided community resource packet to [facility] for follow-up. Has friends and family for support. Patient was medically cleared by alternate provider prior to psych screening. Patient has been evaluated by psychiatry and and is now cleared for discharge. Diagnosis Primary Impression: Antisocial personality traits Additional Impression: Schizoaffective disorder Qualified Codes: F25.0 - Schizoaffective disorder, bipolar type Referrals: [facility] (Out patient) [facility] Primary Care Physician Psychiatrist Maria Ines [facility] Patient Instructions: General Instructions, Schizoaffective Disorder (ED) Additional Instruction: Contract safety to your self and others Follow-up with psychiatry Follow-up with primary care provider Follow-up with [facility] Return to the emergency department immediately with worsening of symptoms Med/Other Pt SpecificInfo: No Change to Meds, No Meds Exist/No RX given Disposition: 01 DISCHARGE HOME Condition: Stable Mariaelena Craig Jun 06, 2017 12:16
== END 2017-06-06 12:37 | disposition home or self-care (01) ==
LOC: NEPJ 19:06
DX: F60.2 Antisocial personality disorder (principal); F25.0 Schizoaffective disorder, bipolar type; I10 Essential (primary) hypertension; F17.210 Nicotine dependence, cigarettes, uncomplicated; Z79.899 Other long term (current) drug therapy
CPT/HCPCS: 80053; 80164; 80307; 84443; 85025; 96372; J1200; J1630; J2060